=== PATIENT | male | born 1980 | race Caucasian/White ===

== ENCOUNTER 2023-01-16 16:13 | Emergency (ER) | payer BC ==
--- OUTSIDE RECORDS SUMMARY | 2023-01-16 16:20 | XMS REPORT | Continuity of Care Document ---
:1980 Author Organization [facility] t Address [address] [facility] [place] [address] Care Team Providers Name Role Phone Jhonatan Kidd MD Primary Care Physician JUAN A THORPE Attending Clinician Unavailable Juan A Thorpe MD Attending Clinician Geovanna Monique MD Attending Clinician GEOVANNA MONIQUE Attending Clinician Unavailable Doctor Unassigned, [place] Attending Clinician Unavailable VALDO ROME Attending Clinician Unavailable DELROY UMANZOR Attending Clinician Unavailable Antonietta Padilla Attending Clinician Delroy Umanzor DO Attending Clinician Josh Lawler MD Attending Clinician PORTIA KRUEGER Attending Clinician Unavailable [facility] Attending Clinician Unavailable Unknown, Attending Attending Clinician Unavailable UNKNOWN, ATTENDING Attending Clinician Unavailable Valdo Callejas Attending Clinician LISY HANNON Attending Clinician Unavailable Lisy Cordova Attending Clinician JHONATAN KIDD Attending Clinician Unavailable Jhonatan Kidd MD Attending Clinician LILLIAM HIGGINBOTHAM Attending Clinician Unavailable Lilliam [place] Attending Clinician RACHEL DUNHAM Attending Clinician Unavailable RACHEL DUNHAM Attending Clinician Unavailable Hawa DAIRY FEED SALES CONSULTANT, Portia Aaron Attending Clinician GENNY WHITTAKER Attending Clinician Unavailable Provider, [facility] Attending Clinician Unavailable Theron DAIRY FEED SALES CONSULTANT, Genny Attending Clinician Evangelist DAIRY FEED SALES CONSULTANT, Celena Attending Clinician JOSH LAWLER Admitting Clinician Unavailable Josh Lawler MD Admitting Clinician Payers Payer Name Policy Type Policy Number Effective Date Expiration Date S ource [employer] - [id number] 2020 OUT OF STATE 00:00:00 SRC SHAYLEE AETNA [id number] 2015 [facility] 00:00:00 Problems Condition Condition Condition Status Onset Resolution Last Treating Co mments Source Name Details Category Date Date Treatment Clinician Date Perirectal Perirectal Disease Active U nivers abscess abscess 5-26 ity of 00:00: [place] [facility] Perineum Perineum Disease Active Unive rs pain, male pain, male 5-24 it y of 00:00: [place] [facility] Rib pain Rib pain Disease Active Unive rs on left on left 1-31 ity of side side 00:00: [facility] Acute Acute Disease Active Univers cough cough 1- ity of 00:00: [place] [facility] [place] Disease Active Univers foot foot 2- ity of 00:00: [place] [facility] Allergies, Adverse Reactions, Alerts Allergy Allergy Status Severity Reaction(s) Onset Inactive Treating Comm ents Source Name Type Date Date Clinician CLINDAMY DRUG Active Other-Cmnt Univ ers MIKE INGREDI 8- ity of 00:00: [place] [facility] Branch Clindamy Propensi Active Other - See Abdomina l Univers mike ty to comments 8 pain, ity of adverse 00:00: dizziness [place] reaction 00 Medical s to Branch drug Sulfa Propensi Active Unknown - Unive rs (Sulfona ty to See comments 2-27 it y of mide adverse 00:00: [place] Antibiot reaction 00 Medica l ics) s Branch SULFA Drug Active High Unknown-Cmnt 2016- Univ ers (SULFONA Class 2-27 ity of MIDE 00:00: [place] ANTIBIOT 00 Medical ICS) Branch Sulfa Propensi Active Unknown - 2017- Elevated Uni vers (Sulfona ty to See comments 2-27 liver it y of mide adverse 00:00: enzymes [place] Antibiot reaction 00 with Medica l ics) s to Bactrim Branch drug Social History Social Habit Start Date Stop Date Quantity Comments Source Gender identity [facility]it y of [facility] intake 2022-10-02 2022-10-02 Current [facility] 00:00:00 00:00:00 non-drinker of [facility] alcohol [place] (finding) Exposure to 2022-09-09 2022-09-19 Not sure [facility] SARS-CoV-2 (event) 00:00:00 15:19:00 [facility] Education 2022-09-19 2022-09-19 21 [facility] 00:00:00 00:00:00 [facility] History of Social 2022-01-31 2022-01-31 Univers ity of function 00:00:00 00:00:00 [facility] Tobacco use and 2021-11-12 2021-11-12 Smokeless Universit y of exposure 00:00:00 00:00:00 tobacco non-user [place] [facility] Sex Ass[birth year] Universit y of 00:00:00 00:00:00 [facility] Smoking Status Start Date Stop Date Source Never smoked tobacco [place] [facility] Medications Ordered Filled Start Stop Current Ordering Indication Dosage Frequency Signature Comments Components Source Medication Medication Date Date Medication? Clinician (SIG) Name Name ketorolac 2022- No 20mg 20 mg, Unive rs (TORADOL) 10-10 Oral, ONCE ity of tablet 20 23:00: 22:25 NOW, 1 [place] mg 00 :00 dose, On Medical Fri Branch 10/10/22 at 1800, EDDIE linezolid 2022- No 600mg 600 mg, Uni vers (ZYVOX) 10-10 Oral, ONCE ity o f tablet 600 22:45: 22:25 NOW, 1 [place] mg 00 :00 dose, On Medical Fri Branch 10/10/22 at 1745, EDDIE
Re ason for Anti-Infec tive: Documented Infection< br>Documen halley Infection Site: Skin / Soft Tissue
Duration of Therapy: Other (see Comments)< br>Restric halley use approved by: EMERGENCY DEPARTMENT PRESCRIBER linezolid 2023-0 Yes [id number] 600mg Take 1 U nivers (ZYVOX) 600 6-16 tablet by ity of mg tablet 00:00: mouth [place] 00 every 12 Medical (twelve) Branch hours. ketorolac 2023-0 Yes [id number] 10mg Take 1 Un amanda 10 mg 6-16 tablet by ity of tablet 00:00: mouth [place] 00 every 6 Medical (six) Branch hours as needed for Pain (scale 4-6) or Pain (scale 7-10). benztropine 2023-0 Yes 1mg Take 1 Univ ers 1 mg tablet 6-08 tablet by ity of 08:52: mouth in [place] [address] the Medical morning. Branch benztropine 2023-0 Yes 1mg Take 1 Univ ers 1 mg tablet 6-08 tablet by ity of 08:52: mouth in [place] [address] the Medical morning. Branch benztropine 2023-0 Yes 1mg Take 1 Univ ers 1 mg tablet 6-08 tablet by ity of 08:52: mouth in [place] [address] the Medical morning. Branch benztropine 2023-0 Yes 1mg Take 1 Univ ers 1 mg tablet 6-08 tablet by ity of 08:52: mouth in [place] [address] the Medical morning. Branch benztropine 2023-0 Yes 1mg Take 1 Univ ers 1 mg tablet 6-08 tablet by ity of 08:52: mouth in [place] [address] the Medical morning. Branch benztropine 2023-0 Yes 1mg Take 1 Univ ers 1 mg tablet 6-08 tablet by ity of 08:52: mouth in [place] [address] the Medical morning. Branch lactobacill 2023-0 2023- No [id number] .5mg Take 1 Univers us 5-29 06-09 tablet by ity of acidophilus 00:00: 04:59 mouth in [place] 00 :00 the Medical morning Branch for 10 days. lactobacill 2023-0 2023- No [id number] .5mg Take 1 [facility] 09-22- tablet by ity of acidophilus 00:00: 04:59 mouth in [place] 00 :00 the Medical morning Branch for 10 days. lactobacill 2022-0 2022- No [id number] .5mg Take 1 [facility] 09-22- tablet by ity of acidophilus 00:00: 04:59 mouth [place] 00 :00 the Medical morning Branch for 10 days. lactobacill 2022-0 2022- No [id number] .5mg Take 1 [facility] 09-22- tablet by ity of acidophilus 00:00: 04:59 mouth in [place] 00 :00 the Medical morning Branch for 10 days. lactobacill 2022-0 2022- No [id number] .5mg Take 1 [facility] 09-22- tablet by ity of acidophilus 00:00: 04:59 mouth in [facility] 00 :00 the Medical morning Branch for 10 days. lactobacill 2022-0 2022- No [id number] .5mg Take 1 [facility] 09-22- tablet by ity of acidophilus 00:00: 04:59 mouth in [facility] 00 :00 the [facility] morning Branch for 10 days. benztropine 2023-0 Yes 1mg Take 1 Univ ers 1 mg tablet 5-28 tablet by ity of 13:34: mouth in [place] [address] the Medical morning. Branch benztropine 2023-0 Yes 1mg Take 1 Univ ers 1 mg tablet 5-28 tablet by ity of 13:34: mouth in [place] [address] the Medical morning. Branch benztropine 2023-0 Yes 1mg Take 1 Univ ers 1 mg tablet 5-28 tablet by ity of 13:34: mouth in [place] [address] the Medical morning. Branch traMADoL 50 3-0 2023- No [id number] 50mg Take 1 Uni vers mg tablet -22 10-05 tablet by ity of 00:00: 04:59 mouth [place] 00 :00 every 6 Medical (six) Branch hours as needed for Pain (scale 7-10) for up to 7 days. Indication s: acute pain traMADoL 50 3-0 2023- No [id number] 50mg Take 1 Uni vers mg tablet -22 10-05 tablet by ity of 00:00: 04:59 mouth [place] 00 :00 every 6 Medical (six) Branch hours as needed for Pain (scale 7-10) for up to 7 days. Indication s: acute pain ciprofloxac 2022-2022- No [id number] 500mg Take 1 Univers in HCl 500 09-21 tablet by ity of mg tablet 00:00: 04:59 mouth [place] 00 :00 every 12 Medical (twelve) Branch hours for 5 days. metroNIDAZO 2022- No [id number] 500mg Take 1 Univers LE 500 mg 09-21 tablet by ity of tablet 00:00: 04:59 mouth [place] 00 :00 every 12 Medical (twelve) Branch hours for 5 days. ciprofloxac No [id number] 500mg Take 1 Univers in HCl 500 09-21 tablet by ity of mg tablet 00:00: 04:59 mouth [place] 00 :00 every 12 Medical (twelve) Branch hours for 5 days. metroNIDAZO 2022- No [id number] 500mg Take 1 Univers LE 500 mg 09-21 tablet by ity of tablet 00:00: 04:59 mouth [place] 00 :00 every 12 Medical (twelve) Branch hours for 5 days. lactated 2022- No 1000mL at [address] [facility] ers ringers IV 09-20-28 mL/hr, ity of infusion 15:00: 13:54 1,000 mL, [place] 1,000 mL 00 :43 IV Medical Infusion, Branch CONTINUOUS , Starting on 09/20/22 at 1000, Until 09/21/22 at 0854, Routine, PACU lactated 2022- No 1000mL at [address] [facility] ers ringers IV 09-20 05-28 mL/hr, ity of infusion 15:00: 13:54 1,000 mL, [place] 1,000 mL 00 :43 IV Medical Infusion, Branch CONTINUOUS , Starting on 09/20/22 at 1000, Until 09/21/22 at 0854, Routine, PACU HYDROcodone 2022- No 1{tbl} 1 tablet, Univers -acetaminop 09-20- Oral, ity of hen (NORCO 15:00: 15:13 ONCE, 1 [place] 5) 5-325 mg 00 :00 dose, On Medi balaji tablet 1 [facility] tablet 09/20/22 at 1000, Routine, PACU HYDROcodone 2022-0 2022- No 1{tbl} 1 tablet, Univers -acetaminop 09-20 Oral, ity of hen (NORCO 15:00: 15:13 ONCE, 1 [place] 5) 5-325 mg 00 :00 dose, On [facility] balaji tablet 1 [facility] tablet 09/20/22 at 1000, Routine, PACU sodium 2022-0 2022- No PRN, Univers chloride 09-20 Starting ity of 0.9 % 14:07: 14:49 on [facility] irrigation 00 :31 09/20/22 at Med ical solution 0907, Branch Until [facility] 09/20/22 at 0949, Intra-op lactobacill 2022-0 Yes .5mg 0.5 mg, Uni vers 09-20 Oral, ity of acidophilus 14:00: DAILY, [place] tablet 0.5 00 First dose Med ical mg on [facility] 09/20/22 at 0900, Until Discontinu ed, Routine benztropine 0 Yes 1mg 1 mg, Unive rs (COGENTIN) 09-20 Oral, ity of tablet 1 mg 14:00: DAILY, [place] 00 First dose Medical on [facility] 09/20/22 at 0900, Until Discontinu ed, Routine enoxaparin 0 Yes 40mg 40 mg, Unive rs (LOVENOX) 09-20 Subcutaneo ity of injection 14:00: [place], [place]ILY, [place] 40 mg 00 First dose Medical on [facility] 09/20/22 at 0900, Until Discontinu ed, Routine lactobacill 2022-0 2022- No .5mg 0.5 mg, Un amanda 09-20 Oral, ity of acidophilus 14:00: 20:39 DAILY, [place] tablet 0.5 00 :49 First dose Med ical mg on [facility] 09/20/22 at 0900, Until Discontinu ed, Routine benztropine 2022-0 2022- No 1mg 1 mg, Univ ers (COGENTIN) 09-20 Oral, ity of tablet 1 mg 14:00: 20:39 DAILY, [place] 00 :49 First dose Medical on [facility] Branch 09/20/22 at 0900, Until Discontinu ed, Routine enoxaparin No 40mg 40 mg, Univ ers (LOVENOX) 09-20 Subcutaneo ity of injection 14:00: 20:39 us, DAILY, [place] 40 mg 00 :49 First dose Medical on [facility] Branch 09/20/22 at 0900, Until Discontinu ed, Routine bupivacaine No PRN, Unive rs (preserv 09-20 Starting ity of free) 13:51: 14:49 on [facility] (SENSORCAIN 00 :31 09/20/22 at [place] dicpr E MPF) 0.25 0851, [facility] (2.5 Until Sat mg/mL) 09/20/22 at injection 0949, Routine, Intra-op ciprofloxac No 400mg 400 mg, IV Univers in in 5 % 09-20 Piggyback, ity of dextrose 13:00: 12:59 Q12H ABX, [place] (CIPRO) 00 :00 18 doses, Medical piggyback First dose Bran ch 400 mg (after last modificati on) on [facility] 09/20/22 at 0800, Last dose on 09/28/22 at 2000, Administer over 60 Minutes, 200 mL
Reas on for Anti-Infec tive: Documented Infection< br>Documen halley Infection Site: Skin / Soft Tissue
Duration of Therapy: Other (see Comments) ciprofloxac No 400mg 400 mg, IV Univers in in 5 % 09-20 Piggyback, ity of dextrose 13:00: 20:39 Q12H ABX, [place] (CIPRO) 00 :49 18 doses, Medical piggyback First dose Bran ch 400 mg (after last modificati on) on [facility] 09/20/22 at 0800, Last dose on 09/28/22 at 2000, Administer over 60 Minutes, 200 mL
Reas on for Anti-Infec tive: Documented Infection< br>Documen halley Infection Site: Skin / Soft Tissue
Duration of Therapy: Other (see Comments) metroNIDAZO 2022- No 500mg 500 mg, IV Univers LE in NaCl 09-20 0608 Infusion, ity of (iso-os) 09:00: 00:59 Q8H ABX, [place] (FLAGYL 00 :00 35 doses, Medical I.V.) RTU First dose Bran ch IV infusion (after 500 mg last modificati on) on Thu09/20/22 at 0400, Last dose on Thu10/01/22 at 1200, Administer over 60 Minutes, 100 mL
Reas on for Anti-Infec tive: Documented Infection< br>Documen halley Infection Site: Skin / Soft Tissue
Duration of Therapy: Other (see Comments) metroNIDAZO 2022- No 500mg 500 mg, IV Univers LE in NaCl 09-20 Infusion, ity of (iso-os) 09:00: 20:39 Q8H ABX, [place] (FLAGYL 00 :49 35 doses, Medical I.V.) RTU First dose Bran ch IV infusion (after 500 mg last modificati on) on Thu09/20/22 at 0400, Last dose on Thu10/01/22 at 1200, Administer over 60 Minutes, 100 mL
Reas on for Anti-Infec tive: Documented Infection< br>Documen halley Infection Site: Skin / Soft Tissue
Duration of Therapy: Other (see Comments) traZODone Yes 50mg 50 mg, Univer s (DESYREL) 09-20 Oral, QHS, ity of tablet 50 04:00: First dose [place] mg 00 on Thu [facility] 09/19/22 at Branch 2300, Until Discontinu ed, Routine traZODone 2022- No 50mg 50 mg, Unive rs (DESYREL) 09-20 Oral, QHS, ity of tablet 50 04:00: 20:39 First dose [place] mg 00 :49 on Thu [facility] 09/19/22 at Branch 2300, Until Discontinu ed, Routine lactated 2022- No 1000mL at 75 Unive rs ringers IV 09-20 mL/hr, ity of infusion 01:30: 14:24 1,000 mL, [place] 1,000 mL 00 :25 IV Medical Infusion, Branch CONTINUOUS , Starting on Thu09/19/22 at 2030, Until 09/20/22 at 0924, Routine lactated 2022- No 1000mL at 75 Unive rs ringers IV 09-20 05-27 mL/hr, ity of infusion 01:30: 14:24 1,000 mL, [place] 1,000 mL 00 :25 IV Medical Infusion, Branch CONTINUOUS , Starting on Thu09/19/22 at 2030, Until 09/20/22 at 0924, Routine ondansetron Yes 4mg 4 mg, Slow Univers (ZOFRAN 5 IV Push, ity of (PF)) 00:22: Q6HPRN, [place] injection 4 50 Starting Medi balaji mg on Thu Branch 09/19/22 at 192, Until Discontinu ed, Routine, Nausea and Vomiting (N/V) ondansetron 0 2022- No 4mg 4 mg, Slow Univers (ZOFRAN 09-20 IV Push, ity of (PF)) 00:22: 20:39 Q6HPRN, [place] injection 4 50 :49 Starting Medi balaji mg on Fri Branch 09/19/22 at 1922, Until 09/21/22 at 1539, Routine, Nausea and Vomiting (N/V) HYDROcodone 2022-2022- No 1{tbl} 1 tablet, Univers -acetaminop 09-20 Oral, ity of hen (NORCO 00:22: 00:21 Q6HPRN, [place] 5) 5-325 mg 46 :46 Starting Medi balaji tablet 1 on Fri Branch tablet 09/19/22 at 1922, Until 09/21/22 at 1921, Routine, Pain (scale 4-6) HYDROcodone 0 2022- No 1{tbl} 1 tablet, Univers -acetaminop 09-20- Oral, ity of hen (NORCO 00:22: 20:39 Q6HPRN, [place] 5) 5-325 mg 46 :49 Starting Medi balaji tablet 1 on Fri Branch tablet 09/19/22 at 1922, Until 09/21/22 at 1539, Routine, Pain (scale 4-6) acetaminoph Yes 650mg 650 mg, Un amanda en 09-20 Oral, ity of (TYLENOL) 00:22: Q6HPRN, [place] tablet 650 44 Starting Medic al mg on Thu Branch 09/19/22 at 1922, Until Discontinu ed, Routine, Pain (scale 1-3) acetaminoph 2022- No 650mg 650 mg, U nivers en 09-20 Oral, ity of (TYLENOL) 00:22: 20:39 Q6HPRN, [place] tablet 650 44 :49 Starting Medic al mg on Thu Branch 09/19/22 at 1922, Until 09/21/22 at 1539, Routine, Pain (scale 1-3) metroNIDAZO 2022- No 500mg 500 mg, IV Univers LE in NaCl 09-19 Infusion, ity of (iso-os) 23:59: 01:42 ONCE, 1 [place] (FLAGYL 00 :00 dose, On Medical I.V.) RTU Fri Branch IV infusion 09/19/22 at 500 mg 1900, Administer over 60 Minutes, 100 mL
R jorge l for Anti-Infec tive: Documented Infection< br>Documen halley Infection Site: Skin / Soft Tissue
Duration of Therapy: Other (see Comments) ciprofloxac 2022- No 400mg 400 mg, IV Univers in in 5 % 09-19 Piggyback, ity of dextrose 23:59: 01:15 ONCE, 1 [place] (CIPRO) 00 :00 dose, On Medical piggyback Thu Branch 400 mg 09/19/22 at 1900, Administer over 60 Minutes, 200 mL
R jorge l for Anti-Infec tive: Documented Infection< br>Documen halley Infection Site: Skin / Soft Tissue
Duration of Therapy: Other (see Comments) metroNIDAZO 2022-0 2022- No 500mg 500 mg, IV Univers LE in NaCl 09-19 Infusion, ity of (iso-os) 23:59: 01:42 ONCE, 1 [place] (FLAGYL 00 :00 dose, On Medical I.V.) RTU Fri Branch IV infusion 09/19/22 at 500 mg 1900, Administer over 60 Minutes, 100 mL
R jorge l for Anti-Infec tive: Documented Infection< br>Documen halley Infection Site: Skin / Soft Tissue
Duration of Therapy: Other (see Comments) ciprofloxac 2022- No 400mg 400 mg, IV Univers in in 5 % 09-19 Piggyback, ity of dextrose 23:59: 01:15 ONCE, 1 [place] (CIPRO) 00 :00 dose, On Medical piggyback Fri Branch 400 mg 09/19/22 at 1900, Administer over 60 Minutes, 200 mL
R jorge l for Anti-Infec tive: Documented Infection< br>Documen halley Infection Site: Skin / Soft Tissue
Duration of Therapy: Other (see Comments) iopamidol 2022- No [id number] 80mL 80 mL, Univers (ISOVUE 09-19 Intravenou ity o f 370-500 mL) 21:25: 21:45 s, ONCE, 1 [place] injection 00 :00 dose, On Medica l 80 mL Fri Branch 09/19/22 at 1645, Routine iopamidol 2022- No [id number] 80mL 80 mL, Univers (ISOVUE 09-19 Intravenou ity o f 370-500 mL) 21:25: 21:45 s, ONCE, 1 [place] injection 00 :00 dose, On Medica l 80 mL Fri Branch 09/19/22 at 1645, Routine benztropine 2022-0 Yes 1mg Take 1 Univ ers 1 mg tablet 5-23 tablet by ity of 13:59: mouth in [place] [address] the Medical morning. Branch benztropine 2022-0 Yes 1mg Take 1 Univ ers 1 mg tablet 5-23 tablet by ity of 13:59: mouth in [place] [address] the Medical morning. Branch benztropine 2022-0 Yes 1mg Take 1 Univ ers 1 mg tablet 5-23 tablet by ity of 13:59: mouth in [place] [address] the Medical morning. Branch mineral 2022-2022- No Apply to Unive rs oil-hydroph 09-16 area(s) 2 it y of [place] petrolat 13:59: 00:00 (two) [place] (AQUAPHOR) 48 :00 times Medical ointment daily as Branch needed. mineral 2022- No [facility] 5-23 05-23 area(s) 2 it y of [place] petrolat 13:59: 00:00 (two) [place] (AQUAPHOR) 48 :00 times Medical ointment daily as Branch needed. mineral 0 Yes Apply [facility] oil-hydroph 3-15 area(s) 2 ity of [place] petrolat 15:45: (two) [place] (AQUAPHOR) 49 times Medical ointment daily as Branch needed. mineral Yes [facility] oil-hydroph 3-15 area(s) 2 ity of [place] petrolat 15:45: (two) [place] (AQUAPHOR) 49 times Medical ointment daily as Branch needed. meloxicam 0 Yes [id number] 7.5mg Take 1 Univers 7.5 mg 3-15 tablet by ity of tablet 00:00: mouth once [place] 00 daily as Medical needed Branch (pain). meloxicam 2022-0 Yes [id number] 7.5mg Take 1 Univers 7.5 mg 3-15 tablet by ity of tablet 00:00: mouth once [place] 00 daily as Medical needed Branch (pain). meloxicam 2022-0 2022- No [id number] 7.5mg Take 1 Univers 7.5 mg 3-15 05-23 tablet by ity of tablet 00:00: 00:00 mouth once [place] 00 :00 daily as Medical needed Branch (pain). meloxicam 2022-0 2022- No [id number] 7.5mg Take 1 Univers 7.5 mg 3-15 05-23 tablet by ity of tablet 00:00: 00:00 mouth once [place] 00 :00 daily as Medical needed Branch (pain). promethazin 2022-0 Yes [id number] 5mL Take 5 mL Univers e-dextromet 1-31 by mouth 4 it y of horphan 00:00: (four) [place] 6.25-15 00 times Medical mg/5 mL daily as Branch syrup needed for Cough. promethazin 2022-0 Yes [id number] 5mL Take 5 mL Univers e-dextromet 1-31 by mouth 4 it y of horphan 00:00: (four) [place] 6.25-15 00 times Medical mg/5 mL daily as Branch syrup needed for Cough. promethazin 2022-0 Yes [id number] 5mL Take 5 mL Univers e-dextromet 1-31 by mouth 4 it y of horphan 00:00: (four) [place] 6.25-15 00 times Medical mg/5 mL daily as Branch syrup needed for Cough. promethazin 2022-0 Yes [id number] 5mL Take 5 mL Univers e-dextromet 1-31 by mouth 4 it y of horphan 00:00: (four) [place] 6.25-15 00 times Medical mg/5 mL daily as Branch syrup needed for Cough. promethazin 2022-0 Yes [id number] 5mL Take 5 mL Univers e-dextromet 1-31 by mouth 4 it y of horphan 00:00: (four) [place] 6.25-15 00 times Medical mg/5 mL daily as Branch syrup needed for Cough. promethazin 2022-0 Yes [id number] 5mL Take 5 mL Univers e-dextromet 1-31 by mouth 4 it y of horphan 00:00: (four) [place] 6.25-15 00 times Medical mg/5 mL daily as Branch syrup needed for Cough. promethazin 2022-0 Yes [id number] 5mL Take 5 mL Univers e-dextromet 1-31 by mouth 4 it y of horphan 00:00: (four) [place] 6.25-15 00 times Medical mg/5 mL daily as Branch syrup needed for Cough. promethazin 2022-0 3- No [id number] 5mL Take 5 mL Univers e-dextromet 1-31 05-23 by mouth 4 i ty of horphan 00:00: 00:00 (four) [place] 6.25-15 00 :00 times Medical mg/5 mL daily as Branch syrup needed for Cough. promethazin 2022-0 2022- No [id number] 5mL Take 5 mL Univers e-dextromet 1-31 05-23 by mouth 4 i ty of horphan 00:00: 00:00 (four) [place] 6.25-15 00 :00 times Medical mg/5 mL daily as Branch syrup needed for Cough. ibuprofen 2022-0 3- No [id number] 600mg Take 1 Univers 600 mg 1- 02-15 tablet by ity of tablet 00:00: 05:59 mouth [place] 00 :00 every 6 Medical (six) Branch hours as needed for Temp > 38.5 C for up to 14 days. ibuprofen 2022-0 3- No [id number] 600mg Take 1 Univers 600 mg 1- 02-15 tablet by ity of tablet 00:00: 05:59 mouth [place] 00 :00 every 6 Medical (six) Branch hours as needed for Temp > 38.5 C for up to 14 days. ibuprofen 2022-0 3- No [id number] 600mg Take 1 Univers 600 mg 1- 02-15 tablet by ity of tablet 00:00: 05:59 mouth [place] 00 :00 every 6 Medical (six) Branch hours as needed for Temp > 38.5 C for up to 14 days. ibuprofen 2022-0 2022- No [id number] 600mg Take 1 Univers 600 mg 1- 02-15 tablet by ity of tablet 00:00: 05:59 mouth [place] 00 :00 every 6 Medical (six) Branch hours as needed for Temp > 38.5 C for up to 14 days. ibuprofen 2022-0 3- No [id number] 600mg Take 1 Univers 600 mg - 02-15 tablet by ity of tablet 00:00: 05:59 mouth [place] 00 :00 every 6 Medical (six) Branch hours as needed for Temp > 38.5 C for up to 14 days. ibuprofen 2022-0 3- No [id number] 600mg Take 1 Univers 600 mg 1- 02-15 tablet by ity of tablet 00:00: 05:59 mouth [place] 00 :00 every 6 Medical (six) Branch hours as needed for Temp > 38.5 C for up to 14 days. benzonatate 3-0 3- No [id number] 200mg Take 1 Univers 200 mg 05-27-08 capsule by ity of capsule 00:00: 05:59 mouth 3 [place] 00 :00 (three) Medical times Branch daily as needed for Cough for up to 7 days. benzonatate 2023-0 3- No [id number] 200mg Take 1 Univers 200 mg 05-27-08 capsule by ity of capsule 00:00: 05:59 mouth 3 [place] 00 :00 (three) Medical times Branch daily as needed for Cough for up to 7 days. benzonatate 2022-0 2022- No [id number] 200mg Take 1 Univers 200 mg 05-27 capsule by ity of capsule 00:00: 00:00 mouth 3 [place] 00 :00 (three) Medical times Branch daily as needed for Cough for up to 7 days. benzonatate 2022-0 2022- No [id number] 200mg Take 1 [facility] 200 mg 05-27 capsule by ity of capsule 00:00: 00:00 mouth 3 [place] 00 :00 (three) Medical times Branch daily as needed for Cough for up to 7 days. perphenazin 2022-0 Yes 8mg Take 1 [facility] ers e 8 mg 1-18 tablet by ity of tablet 00:00: mouth at [place] 00 bedtime. Medical Branch perphenazin 2022-0 Yes 8mg Take 1 [facility] ers e 8 mg 1-18 tablet by ity of tablet 00:00: mouth at [place] [address] bedtime. Medical Branch perphenazin 2022-0 Yes 8mg Take 1 [facility] ers e 8 mg 1-18 tablet by ity of tablet 00:00: mouth at [place] [address] bedtime. Medical Branch mupirocin 2 2022-0 Yes [id number] Apply to [facility] % ointment 1-18 [id number] area(s) 3 it y of 00:00: (three) [place] 00 times Medical daily. Branch mupirocin 2 2022-0 Yes [id number] Apply to [facility] % ointment 1-18 [id number] area(s) 3 it y of 00:00: (three) [place] 00 times Medical daily. Branch mupirocin 2 2022-0 Yes [id number] Apply to [facility] % ointment 1-18 [id number] area(s) 3 it y of 00:00: (three) [place] 00 times Medical daily. Branch mupirocin 2 2022-0 Yes [id number] Apply to [facility] % ointment 1-18 [id number] area(s) 3 it y of 00:00: (three) [place] 00 times Medical daily. Branch mupirocin 2 2022-0 Yes [id number] Apply to [facility] % ointment 1-18 [id number] area(s) 3 it y of 00:00: (three) 00 times Medical daily. Branch perphenazin 2023-0 Yes 8mg Take 8 mg [facility] nivers e 8 mg 1-18 by mouth ity of tablet 00:00: at [place] 00 bedtime. Medical Branch mupirocin 2 3-0 Yes [id number] Apply to [facility] % ointment 1-18 [id number] area(s) 3 it y of 00:00: (three) 00 times Medical daily. Branch perphenazin 2023-0 Yes 8mg Take 8 mg [facility] nivers e 8 mg 1-18 by mouth ity of tablet 00:00: at [place] 00 bedtime. Medical Branch mupirocin 2 3-0 Yes [id number] Apply to [facility] % ointment 1-18 [id number] area(s) 3 it y of 00:00: (three) [place] 00 times Medical daily. Branch perphenazin 2023-0 Yes 8mg Take 8 mg [facility] nivers e 8 mg 1-18 by mouth ity of tablet 00:00: at [place] bedtime. Medical Branch mupirocin 2 3-0 Yes [id number] Apply to [facility] % ointment 1-18 [id number] area(s) 3 it y of 00:00: (three) [place] 00 times Medical daily. Branch perphenazin 2023-0 Yes 8mg Take 8 mg U nivers e 8 mg 1-18 by mouth ity of tablet 00:00: at [place] bedtime. Medical Branch mupirocin 2 3-0 Yes [id number] Apply to [facility] % ointment 1-18 [id number] area(s) 3 it y of 00:00: (three) 00 times Medical daily. Branch perphenazin 2023-0 Yes 8mg Take 8 mg [facility] nivers e 8 mg 1-18 by mouth ity of tablet 00:00: at [place] bedtime. Medical Branch mupirocin 2 3-0 Yes [id number] Apply to [facility] % ointment 1-18 [id number] area(s) 3 it y of 00:00: (three) [place] 00 times Medical daily. Branch perphenazin 2023-0 Yes 8mg Take 8 mg [facility] nivers e 8 mg 1-18 by mouth ity of tablet 00:00: at [place] 00 bedtime. Medical Branch mupirocin 2 3-0 Yes [id number] Apply to [facility] % ointment 1-18 [id number] area(s) 3 it y of 00:00: (three) 00 times Medical daily. Branch perphenazin 2023-0 Yes 8mg Take 8 mg [facility] nivers e 8 mg 1-18 by mouth ity of tablet 00:00: at [place] 00 bedtime. Medical Branch mupirocin 2 3-0 Yes [id number] Apply to [facility] % ointment 1-18 [id number] area(s) 3 it y of 00:00: (three) 00 times Medical daily. Branch perphenazin 2023-0 Yes 8mg Take 8 mg [facility] nivers e 8 mg 1-18 by mouth ity of tablet 00:00: at [place] bedtime. Medical Branch mupirocin 2 3-0 Yes [id number] Apply to [facility] % ointment 1-18 [id number] area(s) 3 it y of 00:00: (three) [place] 00 times Medical daily. Branch perphenazin 2023-0 Yes 8mg Take 8 mg U nivers e 8 mg 1-18 by mouth ity of tablet 00:00: at [place] bedtime. Medical Branch perphenazin 2023-0 Yes 8mg Take 8 mg [facility] nivers e 8 mg 1-18 by mouth ity of tablet 00:00: at [place] [address] bedtime. Medical Branch perphenazin 3-0 Yes 8mg Take 8 mg [facility] nivers e 8 mg 1-18 by mouth ity of tablet 00:00: at [place] bedtime. Medical Branch perphenazin 2023-0 Yes 8mg Take 8 mg [facility] nivers e 8 mg 1-18 by mouth ity of tablet 00:00: at [place] [address] bedtime. Medical Branch perphenazin 2023-0 Yes 8mg Take 1 [facility] ers e 8 mg 1-18 tablet by ity of tablet 00:00: mouth at [place] bedtime. Medical Branch perphenazin 2023-0 Yes 8mg Take 1 [facility] ers e 8 mg 1-18 tablet by ity of tablet 00:00: mouth at [place] [address] bedtime. Medical Branch perphenazin 2023-0 Yes 8mg Take 1 [facility] ers e 8 mg 1-18 tablet by ity of tablet 00:00: mouth at [place] [address] bedtime. Medical Branch perphenazin 2023-0 Yes 8mg Take 1 [facility] ers e 8 mg 1-18 tablet by ity of tablet 00:00: mouth at [place] 00 bedtime. Medical Branch perphenazin 2022-0 Yes 8mg Take 1 [facility] ers e 8 mg 1-18 tablet by ity of tablet 00:00: mouth at [place] 00 bedtime. Medical Branch perphenazin 2022-0 Yes 8mg Take 1 [facility] ers e 8 mg 1-18 tablet by ity of tablet 00:00: mouth at [place] 00 bedtime. Medical Branch mupirocin 2 2022-2022- No [id number] Apply to [facility] % ointment 05-14 [id number] area(s) 3 i ty of 00:00: 00:00 (three) [place] 00 :00 times Medical daily. Branch mupirocin 2 2022-2022- No [id number] Apply to [facility] % ointment 05-14 [id number] area(s) 3 i ty of 00:00: 00:00 (three) [place] 00 :00 times Medical daily. Branch cephALEXin 2022-0 2022- No [id number] 500mg Take 1 [facility] (KEFLEX) 05-14 [id number] capsule by it y of 500 mg 00:00: 05:59 mouth 4 [place] capsule 00 :00 (four) Medical times [place] daily for 7 days. cephALEXin 2022-0 2022- No [id number] 500mg Take 1 [facility] (KEFLEX) 05-14 [id number] capsule by it y of 500 mg 00:00: 05:59 mouth 4 [place] capsule 00 :00 (four) Medical times Branch daily for 7 days. cephALEXin 2022-0 2022- No [id number] 500mg Take 1 [facility] (KEFLEX) 05-14 [id number] capsule by it y of 500 mg 00:00: 05:59 mouth 4 [place] capsule 00 :00 (four) Medical times Branch daily for 7 days. cephALEXin 2022-0 2022- No [id number] 500mg Take 1 [facility] (KEFLEX) 05-14 [id number] capsule by it y of 500 mg 00:00: 05:59 mouth 4 [place] capsule 00 :00 (four) Medical times [place] daily for 7 days. benztropine 2021-04 Yes 1mg Take 1 mg U nivers 1 mg tablet 0-07 by mouth ity of 16:39: daily. [address] benztropine 2021-04 Yes 1mg Take 1 mg U nivers 1 mg tablet 0-07 by mouth ity of 16:39: daily. [address] benztropine 2021-04 Yes 1mg Take 1 mg U nivers 1 mg tablet 0-07 by mouth ity of 16:39: daily. [address] benztropine 2021-04 Yes 1mg Take 1 mg U nivers 1 mg tablet 0-07 by mouth ity of 16:39: daily. [address] benztropine 2021-04 Yes 1mg Take 1 mg U nivers 1 mg tablet 0-07 by mouth ity of 16:39: daily. [address] benztropine 2021-04 Yes 1mg Take 1 mg U nivers 1 mg tablet 0-07 by mouth ity of 16:39: daily. [address] benztropine 2021-04 Yes 1mg Take 1 mg U nivers 1 mg tablet 0-07 by mouth ity of 16:39: daily. [address] benztropine 2021-04 Yes 1mg Take 1 mg U nivers 1 mg tablet 0-07 by mouth ity of 16:39: daily. [address] benztropine 2021-04 Yes 1mg Take 1 mg U nivers 1 mg tablet 0-07 by mouth ity of 16:39: daily. [address] benztropine 2021-04 Yes 1mg Take 1 mg U nivers 1 mg tablet 0-07 by mouth ity of 16:39: daily. [address] benztropine 2021-04 Yes 1mg Take 1 mg U nivers 1 mg tablet 0-07 by mouth ity of 16:39: daily. [address] benztropine 2021-04 Yes 1mg Take 1 mg U nivers 1 mg tablet 0-07 by mouth ity of 16:39: daily. [address] benztropine 2021-04 Yes 1mg Take 1 mg U nivers 1 mg tablet 0-07 by mouth ity of 16:39: daily. [address] benztropine 2021-04 Yes 1mg Take 1 mg U nivers 1 mg tablet 0-07 by mouth ity of 16:39: daily. [address] benztropine 2021-04 Yes 1mg Take 1 mg U nivers 1 mg tablet 0-07 by mouth ity of 16:39: daily. [address] benztropine 2021-04 Yes 1mg Take 1 mg U nivers 1 mg tablet 0-07 by mouth ity of 16:39: daily. [address] benztropine 2021-04 Yes 1mg Take 1 mg U nivers 1 mg tablet 0-07 by mouth ity of 16:39: daily. [address] moxifloxaci 2021-04 Yes [id number] 1[drp] Place 1 [facility] n 0.5 % 0-07 9106 Drop in ity of ophthalmic 00:00: right eye [place] drops 00 in the Medical morning Branch and 1 Drop at noon and 1 Drop in the evening. moxifloxaci 2021-04 Yes [id number] 1[drp] Place 1 [facility] n 0.5 % 0-07 9106 Drop in ity of ophthalmic 00:00: right eye [place] drops 00 in the Medical morning Branch and 1 Drop at noon and 1 Drop in the evening. moxifloxaci 2021-04 Yes [id number] 1[drp] Place 1 [facility] n 0.5 % 0-07 9106 Drop in ity of ophthalmic 00:00: right eye [place] drops 00 in the Medical morning Branch and 1 Drop at noon and 1 Drop in the evening. moxifloxaci 2021-04 Yes [id number] 1[drp] Place 1 [facility] n 0.5 % 0-07 9106 Drop in ity of ophthalmic 00:00: right eye [place] drops 00 in the Medical morning Branch and 1 Drop at noon and 1 Drop in the evening. moxifloxaci 2021-04 Yes [id number] 1[drp] Place 1 [facility] n 0.5 % 0-07 9106 Drop in ity of ophthalmic 00:00: right eye [place] drops 00 in the Medical morning Branch and 1 Drop at noon and 1 Drop in the evening. moxifloxaci 2021-04 Yes [id number] 1[drp] Place 1 [facility] n 0.5 % 0-07 9106 Drop in ity of ophthalmic 00:00: right eye [place] drops 00 in the Medical morning Branch and 1 Drop at noon and 1 Drop in the evening. moxifloxaci 2021-04 Yes [id number] 1[drp] Place 1 [facility] n 0.5 % 0-07 9106 Drop in ity of ophthalmic 00:00: right eye [place] drops 00 in the Medical morning Branch and 1 Drop at noon and 1 Drop in the evening. moxifloxaci 2021-04 Yes [id number] 1[drp] Place 1 [facility] n 0.5 % 0-07 9106 Drop in ity of ophthalmic 00:00: right eye [place] drops 00 in the Medical morning Branch and 1 Drop at noon and 1 Drop in the evening. moxifloxaci 2021-04 Yes [id number] 1[drp] Place 1 [facility] n 0.5 % 0-07 9106 Drop in ity of ophthalmic 00:00: right eye [place] drops 00 in the Medical morning Branch and 1 Drop at noon and 1 Drop in the evening. moxifloxaci 2021-04 Yes [id number] 1[drp] Place 1 [facility] n 0.5 % 0-07 9106 Drop in ity of ophthalmic 00:00: right eye [place] drops 00 in the Medical morning Branch and 1 Drop at noon and 1 Drop in the evening. moxifloxaci 2021-04 Yes [id number] 1[drp] Place 1 [facility] n 0.5 % 0-07 9106 Drop in ity of ophthalmic 00:00: right eye [place] drops 00 in the Medical morning Branch and 1 Drop at noon and 1 Drop in the evening. moxifloxaci 2021-04 Yes [id number] 1[drp] Place 1 [facility] n 0.5 % 0-07 9106 Drop in ity of ophthalmic 00:00: right eye [place] drops 00 in the Medical morning Branch and 1 Drop at noon and 1 Drop in the evening. moxifloxaci 2021-04 Yes [id number] 1[drp] Place 1 [facility] n 0.5 % 0-07 9106 Drop in ity of ophthalmic 00:00: right eye [place] drops 00 in the Medical morning Branch and 1 Drop at noon and 1 Drop in the evening. moxifloxaci 2021-04 Yes [id number] 1[drp] Place 1 [facility] n 0.5 % 0-07 9106 Drop in ity of ophthalmic 00:00: right eye [place] drops 00 in the Medical morning Branch and 1 Drop at noon and 1 Drop in the evening. moxifloxaci 2021-04 Yes [id number] 1[drp] Place 1 [facility] n 0.5 % 0-07 9106 Drop in ity of ophthalmic 00:00: right eye [place] drops 00 in the Medical morning Branch and 1 Drop at noon and 1 Drop in the evening. moxifloxaci 2021-04 Yes [id number] 1[drp] Place 1 [facility] n 0.5 % 0-07 9106 Drop in ity of ophthalmic 00:00: right eye [place] drops 00 in the Medical morning Branch and 1 Drop at noon and 1 Drop in the evening. moxifloxaci 2021-04- No [id number] 1[drp] Place 1 [facility] n 0.5 % 0-07 05-23 9106 Drop in ity of ophthalmic 00:00: 00:00 right eye [place] drops 00 :00 in the Medical morning Branch and 1 Drop at noon and 1 Drop in the evening. moxifloxaci 2021-04- No [id number] 1[drp] Place 1 [facility] n 0.5 % 0-07 05-23 9106 Drop in ity of ophthalmic 00:00: 00:00 right eye [place] drops 00 :00 in the Medical morning Branch and 1 Drop at noon and 1 Drop in the evening. bromphenira Yes [id number] 5mL Take 5 mL [facility] mine-pseudo 7-19 by mouth 4 it y of ephedrine-D 00:00: (four) [place] M (BROMFED 00 times Medical DM) 2-30-10 daily as Bran ch mg/5 mL needed for syrup Congestion /Allergies . methylPREDN Yes [id number] Take by [facility] ISolone 7-19 mouth ity of (MEDROL, 00:00: SEE-INSTRU [place] OSBALDO,) 4 mg 00 CTIONS. Medica l tablets follow Branch package directions naproxen Yes [id number] 500mg Take 1 [facility] nivers 500 mg 7-19 tablet by ity of tablet 00:00: mouth in [place] 00 the Medical morning Branch and 1 tablet in the evening. Take with meals. bromphenira 2021-2021- No [id number] 5mL Take 5 mL [facility] mine-pseudo 11-12 by mouth 4 i ty of ephedrine-D 00:00: 00:00 (four) [place] M (BROMFED 00 :00 times Medical DM) 2-30-10 daily as Bran ch mg/5 mL needed for syrup Congestion /Allergies . methylPREDN 2021-2021- No [id number] Take by [facility] ISolone 11-12 mouth ity of (MEDROL, 00:00: 00:00 SEE-INSTRU [place] OSBALDO,) 4 mg 00 :00 CTIONS. Medica l tablets follow [place] package directions naproxen 2021- No [id number] 500mg Take 1 [facility] 500 mg 11-12 tablet by ity of tablet 00:00: 00:00 mouth in [place] 00 :00 the [facility] morning Branch and 1 tablet in the evening. Take with meals. bromphenira 2021- No [id number] 5mL Take 5 mL [facility] mine-pseudo 11-12 by mouth 4 i ty of ephedrine-D 00:00: 00:00 (four) [place] M (BROMFED 00 :00 times Medical DM) 2-30-10 daily as Bran ch mg/5 mL needed for syrup Congestion /Allergies . methylPREDN 2021- No [id number] Take by [facility] ISolone 11-12 mouth ity of (MEDROL, 00:00: 00:00 SEE-INSTRU [place] OSBALDO,) 4 mg 00 :00 CTIONS. Medica l tablets follow Branch package directions naproxen 2021-2021- No [id number] 500mg Take 1 [facility] 500 mg 11-12 tablet by ity of tablet 00:00: 00:00 mouth in [place] 00 :00 the Medical morning Branch and 1 tablet in the evening. Take with meals. traZODone 2020-04 Yes TAKE 1 [facility] s 50 mg 2-24 TABLET BY ity of tablet 00:00: MOUTH AT [place] 00 BEDTIME Medical NEEDED FOR Branch SLEEP traZODone 2020-04 Yes TAKE 1 [facility] 50 mg 2-24 TABLET BY ity of tablet 00:00: MOUTH AT [place] BEDTIME Medical NEEDED FOR Branch SLEEP traZODone 2020-04 Yes TAKE 1 [facility] 50 mg 2-24 TABLET BY ity of tablet 00:00: MOUTH AT [place] BEDTIME Medical NEEDED FOR Branch SLEEP traZODone 2020-04 Yes TAKE 1 [facility] 50 mg 2-24 TABLET BY ity of tablet 00:00: MOUTH AT [place] BEDTIME Medical NEEDED FOR Branch SLEEP traZODone 2020-04 Yes TAKE 1 [facility] 50 mg 2-24 TABLET BY ity of tablet 00:00: MOUTH AT [place] BEDTIME Medical NEEDED FOR Branch SLEEP traZODone 2020-04 Yes TAKE 1 [facility] s 50 mg 2-24 TABLET BY ity of tablet 00:00: MOUTH AT [place] BEDTIME Medical NEEDED FOR Branch SLEEP traZODone 2020-04 Yes TAKE 1 [facility] 50 mg 2-24 TABLET BY ity of tablet 00:00: MOUTH AT [place] BEDTIME Medical NEEDED FOR Branch SLEEP traZODone 2020-04 Yes TAKE 1 [facility] 50 mg 2-24 TABLET BY ity of tablet 00:00: MOUTH AT [place] BEDTIME Medical NEEDED FOR Branch SLEEP traZODone 2020-04 Yes TAKE 1 [facility] s 50 mg 2-24 TABLET BY ity of tablet 00:00: MOUTH AT [place] BEDTIME Medical NEEDED FOR Branch SLEEP traZODone 2020-04 Yes TAKE 1 [facility] s 50 mg 2-24 TABLET BY ity of tablet 00:00: MOUTH AT [place] BEDTIME Medical NEEDED FOR Branch SLEEP traZODone 2020-04 Yes TAKE 1 [facility] s 50 mg 2-24 TABLET BY ity of tablet 00:00: MOUTH AT [place] BEDTIME Medical NEEDED FOR Branch SLEEP traZODone 2020-04 Yes TAKE 1 [facility] s 50 mg 2-24 TABLET BY ity of tablet 00:00: MOUTH AT [place] BEDTIME Medical NEEDED FOR Branch SLEEP traZODone 2020-04 Yes TAKE 1 [facility] s 50 mg 2-24 TABLET BY ity of tablet 00:00: MOUTH AT [place] BEDTIME Medical NEEDED FOR Branch SLEEP traZODone 2020-04 Yes TAKE 1 [facility] s 50 mg 2-24 TABLET BY ity of tablet 00:00: MOUTH AT [place] BEDTIME Medical NEEDED FOR Branch SLEEP traZODone 2020-04 Yes TAKE 1 [facility] s 50 mg 2-24 TABLET BY ity of tablet 00:00: MOUTH AT [place] BEDTIME Medical NEEDED FOR Branch SLEEP traZODone 2020-04 Yes TAKE 1 [facility] s 50 mg 2-24 TABLET BY ity of tablet 00:00: MOUTH AT [place] BEDTIME Medical NEEDED FOR Branch SLEEP traZODone 2020-04 Yes TAKE 1 [facility] 50 mg 2-24 TABLET BY ity of tablet 00:00: MOUTH AT [place] BEDTIME Medical NEEDED FOR Branch SLEEP traZODone 2020-04 Yes TAKE 1 [facility] s 50 mg 2-24 TABLET BY ity of tablet 00:00: MOUTH AT [place] BEDTIME Medical NEEDED FOR Branch SLEEP traZODone 2020-04 Yes TAKE 1 [facility] s 50 mg 2-24 TABLET BY ity of tablet 00:00: MOUTH AT [place] BEDTIME Medical NEEDED FOR Branch SLEEP traZODone 2020-04 Yes TAKE 1 [facility] 50 mg 2-24 TABLET BY ity of tablet 00:00: MOUTH AT [place] BEDTIME Medical NEEDED FOR Branch SLEEP traZODone 2020-04 Yes TAKE 1 [facility] s 50 mg 2-24 TABLET BY ity of tablet 00:00: MOUTH AT [place] BEDTIME Medical NEEDED FOR Branch SLEEP traZODone 2020-04 Yes TAKE 1 [facility] s 50 mg 2-24 TABLET BY ity of tablet 00:00: MOUTH AT [place] BEDTIME Medical NEEDED FOR Branch SLEEP traZODone 2020-04 Yes TAKE 1 [facility] s 50 mg 2-24 TABLET BY ity of tablet 00:00: MOUTH AT [place] BEDTIME Medical NEEDED FOR Branch SLEEP traZODone 2020-04 Yes TAKE 1 [facility] s 50 mg 2-24 TABLET BY ity of tablet 00:00: MOUTH AT [place] BEDTIME Medical NEEDED FOR Branch SLEEP traZODone 2020-04 Yes TAKE 1 [facility] 50 mg 2-24 TABLET BY ity of tablet 00:00: MOUTH AT [place] BEDTIME Medical NEEDED FOR Branch SLEEP traZODone 2020-04 Yes TAKE 1 [facility] s 50 mg 2-24 TABLET BY ity of tablet 00:00: MOUTH AT [place] [address] BEDTIME Medical NEEDED FOR Branch SLEEP traZODone 2020-04 Yes TAKE 1 [facility] s 50 mg 2-24 TABLET BY ity of tablet 00:00: MOUTH AT [place] BEDTIME Medical NEEDED FOR Branch SLEEP traZODone 2020-04 Yes TAKE 1 [facility] 50 mg 2-24 TABLET BY ity of tablet 00:00: MOUTH AT [place] BEDTIME Medical NEEDED FOR Branch SLEEP traZODone 2020-04 Yes TAKE 1 [facility] 50 mg 2-24 TABLET BY ity of tablet 00:00: MOUTH AT [place] [address] BEDTIME Medical NEEDED FOR Branch SLEEP traZODone 2020-04 Yes TAKE 1 [facility] 50 mg 2-24 TABLET BY ity of tablet 00:00: MOUTH AT [place] [address] BEDTIME Medical NEEDED FOR Branch SLEEP paliperidon 2020-04 Yes 6mg Take 1 Univ ers e 6 mg 24 2-16 tablet by ity o f hour tablet 00:00: mouth [place] every Medical morning. Branch paliperidon 2020-04 Yes 6mg Take 1 Univ ers e 6 mg 24 2-16 tablet by ity o f hour tablet 00:00: mouth [place] every Medical morning. Branch paliperidon 2020-04 Yes 6mg Take 1 Univ ers e 6 mg 24 2-16 tablet by ity o f hour tablet 00:00: mouth [place] every Medical morning. Branch paliperidon 2020-04 Yes 6mg Take 6 mg U nivers e 6 mg 24 2-16 by mouth ity of hour tablet 00:00: every [place] morning. Medical Branch paliperidon 2020-04 Yes 6mg Take 6 mg U nivers e 6 mg 24 2-16 by mouth ity of hour tablet 00:00: every [place] morning. Medical Branch paliperidon 2020-04 Yes 6mg Take 6 mg U nivers e 6 mg 24 2-16 by mouth ity of hour tablet 00:00: every [place] morning. Medical Branch paliperidon 2020-04 Yes 6mg Take 6 mg U nivers e 6 mg 24 2-16 by mouth ity of hour tablet 00:00: every [place] [address] morning. Medical Branch paliperidon 2020-04 Yes 6mg Take 6 mg U nivers e 6 mg 24 2-16 by mouth ity of hour tablet 00:00: every [place] morning. Medical Branch paliperidon 2020-04 Yes 6mg Take 6 mg U nivers e 6 mg 24 2-16 by mouth ity of hour tablet 00:00: every [place] morning. Medical Branch paliperidon 2020-04 Yes 6mg Take 6 mg U nivers e 6 mg 24 2-16 by mouth ity of hour tablet 00:00: every [place] morning. Medical Branch paliperidon 2020-04 Yes 6mg Take 6 mg U nivers e 6 mg 24 2-16 by mouth ity of hour tablet 00:00: every [place] morning. Medical Branch paliperidon 2020-04 Yes 6mg Take 6 mg U nivers e 6 mg 24 2-16 by mouth ity of hour tablet 00:00: every [place] morning. Medical Branch paliperidon 2020-04 Yes 6mg Take 6 mg U nivers e 6 mg 24 2-16 by mouth ity of hour tablet 00:00: every [place] morning. Medical Branch paliperidon 2020-04 Yes 6mg Take 6 mg U nivers e 6 mg 24 2-16 by mouth ity of hour tablet 00:00: every [place] morning. Medical Branch paliperidon 2020-04 Yes 6mg Take 6 mg U nivers e 6 mg 24 2-16 by mouth ity of hour tablet 00:00: every [place] morning. Medical Branch paliperidon 2020-04 Yes 6mg Take 6 mg U nivers e 6 mg 24 2-16 by mouth ity of hour tablet 00:00: every [place] morning. Medical Branch paliperidon 2020-04 Yes 6mg Take 6 mg U nivers e 6 mg 24 2-16 by mouth ity of hour tablet 00:00: every [place] morning. Medical Branch paliperidon 2020-04 Yes 6mg Take 6 mg U nivers e 6 mg 24 2-16 by mouth ity of hour tablet 00:00: every [place] morning. Medical Branch paliperidon 2020-04 Yes 6mg Take 6 mg U nivers e 6 mg 24 2-16 by mouth ity of hour tablet 00:00: every [place] [address] morning. Medical Branch paliperidon 2020-04 Yes 6mg Take 6 mg U nivers e 6 mg 24 2-16 by mouth ity of hour tablet 00:00: every 00 morning. Medical Branch paliperidon 2020-04 Yes 6mg Take 6 mg U nivers e 6 mg 24 2-16 by mouth ity of hour tablet 00:00: every 00 morning. Medical Branch paliperidon 2020-04 Yes 6mg Take 6 mg U nivers e 6 mg 24 2-16 by mouth ity of hour tablet 00:00: every 00 morning. Medical Branch paliperidon 2020-04 Yes 6mg Take 6 mg U nivers e 6 mg 24 2-16 by mouth ity of hour tablet 00:00: every 00 morning. Medical Branch paliperidon 2020-04 Yes 6mg Take 6 mg U nivers e 6 mg 24 2-16 by mouth ity of hour tablet 00:00: every 00 morning. Medical Branch paliperidon 2020-04 Yes 6mg Take 1 Univ ers e 6 mg 24 2-16 tablet by ity o f hour tablet 00:00: mouth [place] 00 every Medical morning. Branch paliperidon 2020-04 Yes 6mg Take 1 Univ ers e 6 mg 24 2-16 tablet by ity o f hour tablet 00:00: mouth [place] 00 every Medical morning. Branch paliperidon 2020-04 Yes 6mg Take 1 Univ ers e 6 mg 24 2-16 tablet by ity o f hour tablet 00:00: mouth [place] 00 every Medical morning. Branch paliperidon 2020-04 Yes 6mg Take 1 Univ ers e 6 mg 24 2-16 tablet by ity o f hour tablet 00:00: mouth [place] 00 every Medical morning. Branch paliperidon 2020-04 Yes 6mg Take 1 Univ ers e 6 mg 24 2-16 tablet by ity o f hour tablet 00:00: mouth [place] 00 every Medical morning. Branch paliperidon 2020-04 Yes 6mg Take 1 Univ ers e 6 mg 24 2-16 tablet by ity o f hour tablet 00:00: mouth [place] 00 every Medical morning. Branch diclofenac Yes [id number] 50mg Take 1 [facility] 50 mg EC 8-31 tablet by ity of tablet 00:00: mouth 2 [place] 00 (two) Medical times Branch daily with meals. diclofenac 2021- No [id number] 50mg Take 1 [facility] 50 mg EC 8-31 10-07 tablet by ity o f tablet 00:00: 00:00 mouth 2 [place] 00 :00 (two) Medical times Branch daily with meals. diclofenac 2021- No [id number] 50mg Take 1 [facility] 50 mg EC 8-01-31 tablet by ity o f tablet 00:00: 00:00 mouth 2 [place] 00 :00 (two) Medical times Branch daily with meals. lidocaine/h Yes [id number] 1{appli Insert 1 [facility] ydrocortiso 10-06 cator} Applicator ity of ne ac 00:00: into [place] (LIDOCAINE 00 rectum 2 Medic al HCL-HYDROCO (two) Branch RTISON AC) times 3 %-2.5 % daily as (7 gram) needed for Gel Pain (scale 4-6). lidocaine/h 2021- No [id number] 1{appli Insert 1 [facility] ydrocortiso -01-31 cator} Applicator ity of ne ac 00:00: 00:00 into [place] (LIDOCAINE 00 :00 rectum 2 Medic al HCL-HYDROCO (two) Branch RTISON AC) times 3 %-2.5 % daily as (7 gram) needed for Gel Pain (scale 4-6). lidocaine/h 2021- No [id number] 1{appli Insert 1 [facility] ydrocortiso 10-06 cator} Applicator ity of ne ac 00:00: 00:00 into [place] (LIDOCAINE 00 :00 rectum 2 Medic al HCL-HYDROCO (two) Branch RTISON AC) times 3 %-2.5 % daily as (7 gram) needed for Gel Pain (scale 4-6). benztropine Yes 1mg Take 1 mg U nivers 1 mg tablet 08 by mouth ity of 14:07: daily. [place] 42 Medical Branch Lidocaine-H Yes [id number] Insert [facility] ydrocortiso 10-02 into ity of [place] 00:00: rectum 3 [place] 2.8-0.55 % 00 (three) Medica l Gel times Branch daily as needed for Pain (scale 4-6). Lidocaine-H 2021- No [id number] Insert [facility] ydrocortiso 10-02 into ity of ne-[place] 00:00: 00:00 rectum 3 [place] 2.8-0.55 % 00 :00 (three) Medica l Gel times Branch daily as needed for Pain (scale 4-6). Lidocaine-H 2021- No [id number] Insert Univers ydrocortiso 10-02 into ity of [place] 00:00: 00:00 rectum 3 [place] 2.8-0.55 % 00 :00 (three) Medica l Gel times Branch daily as needed for Pain (scale 4-6). mupirocin 2 Yes [id number] Apply to Univers % ointment 11-30 area(s) 3 ity of 00:00: (three) [place] 00 times Medical daily. Branch mupirocin 2 2021- No [id number] Apply to Univers % ointment 11-30 area(s) 3 ity of 00:00: 00:00 (three) [place] 00 :00 times Medical daily. Branch mupirocin 2 2021- No [id number] Apply to Univers % ointment 11-30 area(s) 3 ity of 00:00: 00:00 (three) [place] 00 :00 times Medical daily. Branch hydrocortis Yes Apply to Un amanda one 2.5 % 5-04 affected ity of cream 00:00: area(s) 2 [place] 00 (two) Medical times Branch daily. hydrocortis Yes Apply to Un amanda one 2.5 % 5-04 affected ity of cream 00:00: area(s) 2 [place] 00 (two) Medical times Branch daily. hydrocortis 2017- Yes Apply to Un amanda one 2.5 % 5-04 affected ity of cream 00:00: area(s) 2 [place] 00 (two) Medical times Branch daily. hydrocortis 2017-0 Yes Apply to Un amanda one 2.5 % 5-04 affected ity of cream 00:00: area(s) 2 [place] 00 (two) Medical times Branch daily. hydrocortis 2018- Yes Apply to Un amanda one 2.5 % 5-04 affected ity of cream 00:00: area(s) 2 [place] 00 (two) Medical times Branch daily. hydrocortis 2018-0 Yes Apply to Un amanda one 2.5 % 5-04 affected ity of cream 00:00: area(s) 2 [place] 00 (two) Medical times Branch daily. hydrocortis 2018-0 Yes Apply to Un amanda one 2.5 % 5-04 affected ity of cream 00:00: area(s) 2 [place] 00 (two) Medical times Branch daily. hydrocortis 2018-0 Yes Apply to Un amanda one 2.5 % 5-04 affected ity of cream 00:00: area(s) 2 [place] 00 (two) Medical times Branch daily. hydrocortis 2018-0 Yes Apply to Un amanda one 2.5 % 5-04 affected ity of cream 00:00: area(s) 2 [place] 00 (two) Medical times Branch daily. hydrocortis 2018-0 Yes Apply to Un amanda one 2.5 % 5-04 affected ity of cream 00:00: area(s) 2 [place] 00 (two) Medical times Branch daily. hydrocortis 2017-0 Yes Apply to Un amanda one 2.5 % 5-04 affected ity of cream 00:00: area(s) 2 [place] 00 (two) Medical times Branch daily. hydrocortis 2018-0 Yes Apply to Un amanda one 2.5 % 5-04 affected ity of cream 00:00: area(s) 2 [place] 00 (two) Medical times Branch daily. hydrocortis 2018-0 Yes Apply to Un amanda one 2.5 % 5-04 affected ity of cream 00:00: area(s) 2 [place] 00 (two) Medical times Branch daily. hydrocortis 2018-0 Yes Apply to Un amanda one 2.5 % 5-04 affected ity of cream 00:00: area(s) 2 [place] 00 (two) Medical times Branch daily. hydrocortis 2018-0 Yes Apply to Un amanda one 2.5 % 5-04 affected ity of cream 00:00: area(s) 2 [place] 00 (two) Medical times Branch daily. hydrocortis 2018-0 Yes Apply to Un amanda one 2.5 % 5-04 affected ity of cream 00:00: area(s) 2 [place] 00 (two) Medical times Branch daily. hydrocortis 2018-0 Yes Apply to Un amanda one 2.5 % 5-04 affected ity of cream 00:00: area(s) 2 [place] 00 (two) Medical times Branch daily. hydrocortis Yes Apply to Un amanda one 2.5 % 5-04 affected ity of cream 00:00: area(s) 2 [place] 00 (two) Medical times Branch daily. hydrocortis 2022- No Apply to U nivers one 2.5 % 5-04 05-23 affected ity o f cream 00:00: 00:00 area(s) 2 [place] 00 :00 (two) Medical times Branch daily. hydrocortis 2022- No Apply to U nivers one 2.5 % 5-04 05-23 affected ity o f cream 00:00: 00:00 area(s) 2 [place] 00 :00 (two) Medical times Branch daily. Vital Signs Vital Name Observation Time Observation Value Comments Source Systolic blood 2022-10-10 21:01:00 123 mm[Hg] Univer [facility]ity [facility] Diastolic blood 2022-10-10 21:01:00 76 mm[Hg] Unive rsity of [facility] Heart rate 2022-10-10 21:01:00 96 /min [facility] Body temperature 2022-10-10 21:01:00 37.22 Lauren [facility] Respiratory rate 2022-10-10 21:01:00 20 /min [facility] Body height 2022-10-10 21:01:00 180.3 cm [facility] Body weight 2022-10-10 21:01:00 73.483 kg [facility] BMI 2022-10-10 21:01:00 22.59 kg/m2 [facility] Oxygen saturation in 2022-10-10 21:01:00 97 /min [facility] Arterial blood by [facility] Pulse oximetry Branch Systolic blood 2022-10-02 13:53:00 126 mm[Hg] Univer sity of [facility] Diastolic blood 2022-10-02 13:53:00 70 mm[Hg] Unive rsity of [facility] Heart rate 2022-10-02 13:53:00 78 /min [facility] Body temperature 2022-10-02 13:53:00 36.89 Lauren [facility] [place] [facility] Respiratory rate 2022-10-02 13:53:00 20 /min Univ [facility] [place] [facility] Body height 2022-10-02 13:53:00 180.3 cm Universi ty [facility] [place] [facility] Body weight 2022-10-02 13:53:00 77.656 kg [facility] [place] [facility] BMI 2022-10-02 13:53:00 23.88 kg/m2 [facility] [place] [facility] Oxygen saturation in 2022-10-02 13:53:00 99 /min University of Arterial blood by [place] L2 balaji Pulse oximetry Branch Systolic blood 2022-09-21 16:07:00 128 mm[Hg] Univer sity of pressure [place] [facility] Diastolic blood 2022-09-21 16:07:00 81 mm[Hg] Unive rsity of pressure [place] [facility] Heart rate 2022-09-21 16:07:00 87 /min Universi ty [facility] [place] [facility] Body temperature 2022-09-21 16:07:00 36.39 Lauren [facility] [place] [facility] Respiratory rate 2022-09-21 16:07:00 18 /min Univ [facility] [place] [facility] Oxygen saturation in 2022-09-21 16:07:00 99 /min University of Arterial blood by [place] L2 balaji Pulse oximetry Branch Body weight 2022-09-21 08:12:00 76.975 kg Universi [facility] [place] [facility] BMI 2022-09-21 08:12:00 23.67 kg/m2 [facility] [place] [facility] Body height 2022-09-19 20:21:00 180.3 cm [facility] [place] [facility] Respiratory rate 2022-09-20 14:44:00 18 /min Univ ers[facility] [place] [facility] Oxygen saturation in 2022-09-20 14:44:00 100 /min University of Arterial blood by [place] L2 balaji Pulse oximetry Branch Systolic blood 2022-09-20 14:42:00 118 mm[Hg] Univer sity of pressure [place] [facility] Diastolic blood 2022-09-20 14:42:00 78 mm[Hg] Unive rsity of pressure [place] [facility] Heart rate 2022-09-20 14:22:00 72 /min Universi ty of [facility] Body temperature 2022-09-20 14:16:00 36.28 Lauren Univ ersity of [facility] Body weight 2022-09-20 08:36:00 75.479 kg Universi ty of [facility] Branch BMI 2022-09-20 08:36:00 23.67 kg/m2 Universi ty of [facility] Body height 2022-09-19 20:21:00 180.3 cm Universi ty of [facility] Systolic blood 2022-09-19 20:11:00 137 mm[Hg] Univer sity of pressure [facility] Branch Diastolic blood 2022-09-19 20:11:00 74 mm[Hg] Unive rsity of [facility] Heart rate 2022-09-19 20:11:00 105 /min Universi ty of [facility] Body temperature 2022-09-19 20:11:00 36.17 Lauren Univ ersity of [facility] Respiratory rate 2022-09-19 20:11:00 16 /min Univ ersity of [facility] Body height 2022-09-19 20:11:00 180.3 cm Universi ty of [place] [facility] [place] Body weight 2022-09-19 20:11:00 76.386 kg Universi ty of [facility] BMI 2022-09-19 20:11:00 23.49 kg/m2 Universi ty of [facility] Oxygen saturation in 2022-09-19 20:11:00 98 /min University Arterial blood by [facility] Pulse oximetry Branch Systolic blood 2022-09-16 18:44:00 106 mm[Hg] Univer sity of pressure [facility] Diastolic blood 2022-09-16 18:44:00 64 mm[Hg] Unive rsity of pressure [facility] Heart rate 2022-09-16 18:44:00 77 /min Universi ty of [facility] Branch Body temperature 2022-09-16 18:44:00 37 Lauren Univ ersity of [facility] Body height 2022-09-16 18:44:00 180.3 cm Universi ty of [facility] Branch Body weight 2022-09-16 18:44:00 75.932 kg Universi ty of [facility] Branch BMI 2022-09-16 18:44:00 23.35 kg/m2 [facility]i [facility] [place] [facility] Oxygen saturation in 2022-09-16 18:44:00 100 /min University of Arterial blood by [place] Medi balaji Pulse oximetry Branch Systolic blood 2022-07-09 20:44:00 131 mm[Hg] Univer sity of pressure [place] [facility] Diastolic blood 2022-07-09 20:44:00 81 mm[Hg] Unive rsity of pressure [place] [facility] Heart rate 2022-07-09 20:44:00 71 /min Universi [facility] [place] [facility] Body temperature 2022-07-09 20:44:00 36.78 Lauren [facility] [place] [facility] Respiratory rate 2022-07-09 20:44:00 20 /min Univ [facility] [place] [facility] Body height 2022-07-09 20:44:00 180.3 cm [facility] [place] [facility] Body weight 2022-07-09 20:44:00 77.157 kg [facility] [place] [facility] BMI 2022-07-09 20:44:00 23.72 kg/m2 [facility] [place] [facility] Oxygen saturation in 2022-07-09 20:44:00 100 /min University of Arterial blood by [place] Medi balaji Pulse oximetry Branch Systolic blood 2022-05-27 19:55:00 104 mm[Hg] Univer sity of pressure [place] [facility] Diastolic blood 2022-05-27 19:55:00 66 mm[Hg] Unive rsity of pressure [place] [facility] Heart rate 2022-05-27 19:55:00 78 /min Universi ty [facility] [place] [facility] Body temperature 2022-05-27 19:55:00 36.78 Lauren [facility] [place] [facility] Body height 2022-05-27 19:55:00 180.3 cm [facility] [place] [facility] Body weight 2022-05-27 19:55:00 77.565 kg [facility] [place] [facility] BMI 2022-05-27 19:55:00 23.85 kg/m2 [facility] [place] [facility] Oxygen saturation in 2022-05-27 19:55:00 99 /min University of Arterial blood by [place] Medi balaji Pulse oximetry Branch Systolic blood 2022-05-21 18:13:00 116 mm[Hg] Univer sity of pressure [place] [facility] Diastolic blood 2022-05-21 18:13:00 72 mm[Hg] Unive rsity of pressure [place] [facility] Heart rate 2022-05-21 18:13:00 73 /min Universi ty [facility] [place] [facility] Body height 2022-05-21 18:13:00 180.3 cm [facility]i ty [facility] [place] [facility] Body weight 2022-05-21 18:13:00 76.114 kg [facility] [place] [facility] BMI 2022-05-21 18:13:00 23.40 kg/m2 Universi ty [facility] [place] [facility] Oxygen saturation in 2022-05-21 18:13:00 98 /min University of Arterial blood by [facility] balaji Pulse oximetry Branch Systolic blood 2022-05-14 20:38:00 127 mm[Hg] Univer sity of pressure [place] [facility] Diastolic blood 2022-05-14 20:38:00 76 mm[Hg] Unive rsity of pressure [place] [facility] Heart rate 2022-05-14 20:38:00 74 /min [facility]i ty [facility] [place] [facility] Body temperature 2022-05-14 20:38:00 36.83 Lauren [facility] [place] [facility] Body height 2022-05-14 20:38:00 180.3 cm [facility] [place] [facility] Body weight 2022-05-14 20:38:00 76.204 kg [facility] [place] [facility] BMI 2022-05-14 20:38:00 23.43 kg/m2 [facility] [place] [facility] Oxygen saturation in 2022-05-14 20:38:00 100 /min University of Arterial blood by [facility] balaji Pulse oximetry Branch Systolic blood 2022-01-31 21:27:00 120 mm[Hg] Univer sity of pressure [place] [facility] Diastolic blood 2022-01-31 21:27:00 72 mm[Hg] Unive rsity of pressure [place] [facility] Heart rate 2022-01-31 21:27:00 80 /min [facility]i ty [facility] [place] [facility] Body height 2022-01-31 21:27:00 180.3 cm [facility] [place] [facility] Body weight 2022-01-31 21:27:00 76.34 kg [facility] [place] [facility] BMI 2022-01-31 21:27:00 23.47 kg/m2 [facility]i ty [facility] [place] [facility] Oxygen saturation in 2022-01-31 21:27:00 99 /min University Arterial blood by [facility] Pulse oximetry Branch Procedures Procedure Date / Time Performing Clinician Source Performed ASSIGNMENT OF BENEFITS 2022-10-10 22:16:56 Doctor Unassigned, No [facility] Medical Branch CONSENT/REFUSAL FOR 2022-10-10 20:57:37 [facility]igned, [facility] Name Medical Branch DISABILITY/FMLA 2022-10-02 05:01:00 Doctor Unassigned, No [facility] Name Medical Branch ASPIRATE OR ABSCESS 2022-09-20 13:59:00 Marlyn [facility] CULTURE(AEROBIC/ANAEROB Medical Branch IC) ASPIRATE OR ABSCESS 2022-09-20 13:59:00 Marlyn [facility] CULTURE(AEROBIC/ANAEROB Medical Branch IC) EXAM UNDER ANESTHESIA 2022-09-20 13:05:00 Marlyn [facility] RECTUM [facility] Branch INCISION AND DRAINAGE 2022-09-20 13:05:00 Marlyn [facility] RECTAL ABSCESS Medical Branch CT ABDOMEN PELVIS W 2022-09-19 21:35:21 Antonietta Mac [facility] CONTRAST Medical Branch CT ABDOMEN PELVIS W 2022-09-19 21:35:21 Antonietta Mac [facility] CONTRAST Medical Branch COMP. METABOLIC PANEL 2022-09-19 21:04:00 Antonietta Mac [facility] ([id number]) Medical Branch CBC WITH DIFF 2022-09-19 21:04:00 Antonietta Mac [place] [facility] URINALYSIS 2022-09-19 21:04:00 Bubba, K Marisa [place] [facility] COMP. METABOLIC PANEL 2022-09-19 21:04:00 Antonietta Mac [facility] ([id number]) Medical Branch CBC WITH DIFF 2022-09-19 21:04:[address] [facility] o [facility] URINALYSIS 2022-09-19 21:04:00 Bubba, K Marias [facility] CONSENT/REFUSAL FOR 2022-09-19 20:18:14 Doctor Unassigned, No [facility] Name [facility] CONSENT/REFUSAL FOR 2022-09-19 20:18:14 Doctor [facility]assigned, [facility] Name [facility] PATIENT FINANCIAL 2022-07-09 20:35:43 Doctor Unassigned, No [facility] POLICY Name [facility] ASSIGNMENT OF BENEFITS 2022-05-14 19:58:57 Doctor Unassigned, No [facility] Name Medical Branch VACCINATIONS - 2022-01-27 05:01:00 Doctor Unassigned, No [facility] CONSENTS, ELIGIBILITY, Name Medical B ranch HISTORY Encounters Start End Encounter Admission Attending Care Care Encounter Source Date/Time Date/Time Type Type Clinicians Facility Department ID 2022-10-10 2022-10-10 Emergency X [facility] E[facility] [id number] Univers 16:06:00 17:32:00 JUAN A cirilo [facility] 2022-10-10 2022-10-10 Emergency [facility] 1.2.840.114 [id number] Univers 16:06:00 17:32:00 Juan A MICHELLEZAIN 350.1.13.10 i ty [place] [id number] [facility] [address] [place] 2022-10-09 2022-10-09 Clinic [facility] 1.2.840.114 [id number] Univers 00:00:00 00:00:00 Assessment Geovanna MIGUEL ANGELZAIN 350.1.13.10 ity [facility] 4[place].2.[place] [id number] [place] N[place] [address] [place] [address] 2022-10-02 2022-10-02 Outpatient R GEOVANNA MONIQUE [facility] [id number] Univers 09:00:00 09:58:15 GEOVANNA MONIQUE [facility] 2022-10-02 2022-10-02 Office [facility] 1.2.840.114 [id number] Univers 09:00:00 09:58:15 Visit Geovanna OBRIEN 350.1.13.10 ity [facility] 4[place] [id number] [place] N[place] [address] [facility] 2022-10-022022-10-02 Orders Doctor DANIELA 1.2.840.114 [id number] Univers 00:00:00 00:00:00 Only Unassigned, ELAINE 350.1.13.10 ity of [place] [facility] 4.2.7.2.686 Kanu as [id number] [facility] 009 Branch 2022-09-30 2022-09-30 Telephone [facility] [id number] Univers 00:00:00 00:00:00 Geovanna OBRIEN 350.1.13.10 ity of [facility] 4.[place] [phone] [place] dical [facility] 188 Branch [facility] 2022-09-24 2022-09-24 Outpatient R YVROSE [facility] [id number] Univers 00:00:00 00:00:00 VALDO watkins [facility] 2022-09-23 2022-09-23 Outpatient Solis ROME [facility] [id number] Univers 00:00:00 00:00:00 VALDO watkins [facility] 2022-09-19 2022-09-21 Outpatient X NOÉ [facility] [id number] Univers 15:23:00 13:34:00 DELROY watkins [facility] 2022-09-19 2022-09-21 Emergency Antonietta Mac [facility] 1.2.840. 114 [id number] Univers 15:23:00 13:34:00 Delroy Umanzor 350.1.13.10 ity of [place] 4.2.7.2.686 [facility] [phone] [facility] 081 Branch 2022-09-20 2022-09-20 Surgery [facility] 1.2.840.114 [id number] Univers 08:00:00 09:44:00 Geovanna OBRIEN 350.1.13.10 ity of [place].7.2.[place] [id number] [facility] 020 Branch 2022-09-19 2022-09-19 Outpatient R HAWA [facility] [id number] Univers 15:00:00 15:05:36 PORTIA watkins o f [facility] 2022-09-19 2022-09-19 Nurse Nurse, Suleman [facility] 1.2.840.114 [id number] Univers 15:00:00 15:05:36 Visit Unknown, Attending HEALTH 350.1.13.10 ity of [place] 4.2.7.2.686 Kanu as LOKESH?BLEA [id number] [place] trina JEFFERS [address] [place] MEDICAL OFFICE [facility] 2022-09-19 2022-09-19 Outpatient R UNKNOWN, [facility] [id number] Univers 14:40:00 14:40:00 ATTENDING itcirilo [facility] 2022-09-16 2022-09-16 Outpatient R YVROSE, [facility] [id number] Univers 13:30:00 17:12:58 VALDO itcirilo [facility] 2022-09-16 2022-09-16 Office Yvrose [facility] 1.2.840.114 [id number] Univers 13:30:00 17:12:58 Visit Valdo [facility] 350.1.13.10 it y of [place] 4.2.7.2.686 Kanu as LOKESH?BLEA [id number] [facility] [address] OFFICE [facility] 2022-07-09 2022-07-09 Outpatient R LEISA, [facility] [id number] Univers 16:00:00 16:14:05 LISY ity [facility] 2022-07-09 2022-07-09 Office [facility] 1.2.840.114 [id number] Univers 16:00:00 16:14:05 Visit Lisy Merlin [facility] 350.1.13.10 i ty of [place] 4.2.7.2.686 Kanu as LOKESH?BLEA [id number] [facility] [address] [place] MEDICAL OFFICE [facility] 2022-07-09 2022-07-09 Orders Doctor SUAREZ 1.2.840.114 [id number] Univers 00:00:00 00:00:00 Only Unassigned, ELAINE 350.1.13.10 ity of [place] [facility] 4.2.7.2.686 Kanu as [id number] [address] 2022-06-18 2022-06-18 Outpatient R LARS [facility] [id number] Univers 14:00:00 14:00:00 JHONATAN watkins [facility] 2022-06-05 2022-06-05 Telephone [facility] [id number] Univers 00:00:00 00:00:00 Jhonatan HEALTH 350.1.13.10 it y of [place] 4.2.7.2.686 Kanu as LOKESH?BLEA [id number] [address] OFFICE [facility] 2022-05-28 2022-05-28 Telephone [facility] [id number] Univers 00:00:00 00:00:00 Jhonatan HEALTH 350.1.13.10 it y of [place] 4.2.7.2.686 Kanu as LOKESH?BLEA [id number] [address] 2022-05-27 2022-05-27 Outpatient R YVROSE [facility] [id number] Univers 14:21:50 23:59:00 VALDO watkins [facility] 2022-05-27 2022-05-27 Office [facility] 1.2.840.114 [id number] Univers 13:30:00 14:22:06 Visit Valdo HEALTH 350.1.13.10 it y of [place] 4.2.7.2.686 Kanu as LOKESH?BLEA [id number] [address] OFFICE [facility] 2022-05-27 2022-05-27 Telephone [facility] [id number] Univers 00:00:00 00:00:00 Valdo HEALTH 350.1.13.10 it y of [place] 4.2.7.2.686 Kanu as LOKESH?BLEA [id number] [address] OFFICE [facility] 2022-05-21 2022-05-21 Office [facility] 1.2.840.114 [id number] Univers 12:30:00 12:45:00 Visit Jhonatan HEALTH 350.1.13.10 it y of [place] 4.2.7.2.686 Kanu as LOKESH?BLEA [id number] [address] MEDICAL OFFICE [facility] 2022-05-21 2022-05-21 Outpatient R LARS [facility] [id number] Univers 12:30:00 12:30:00 JHONATAN watkins [facility] 2022-05-14 2022-05-14 Outpatient R LEISA [facility] [id number] Univers 14:30:00 15:01:01 LISY watkins [facility] 2022-05-14 2022-05-14 Office [facility] 1.2.840.114 [id number] Univers 14:30:00 15:01:01 Visit Lisy A HEALTH 350.1.13.10 i ty [facility] 4.2.7.2.686 Kanu as LOKESH?BLEA [id number] [address] OFFICE [facility] 2022-05-14 2022-05-14 Orders Doctor DANIELA 1.2.840.114 [id number] Univers 00:00:00 00:00:00 Only Unassigned, ELAINE 350.1.13.10 ity of [place] [facility] 4.2.7.2.686 Kanu as [id number] [address] 2022-01-31 2022-01-31 Outpatient R LIBERTYBRODERICK [facility] [id number] Univers 16:30:00 16:52:58 LILLIAM watkins [facility] 2022-01-31 2022-01-31 Office [facility] 1.2.840.114 [id number] Univers 16:30:00 16:52:58 Visit Lilliam HEALTH 350.1.13.10 it y [facility] 4.2.7.2.686 Kanu as LOKESH?BLEA [id number] [address] OFFICE [facility] 2022-01-27 2022-01-27 Orders Doctor DANIELA 1.2.840.114 [id number] Univers 00:00:00 00:00:00 Only Unassigned, ELAINE 350.1.13.10 ity of [place] [facility] 4.2.7.2.686 Kanu as [id number] [address] 2021-12-09 2021-12-09 Telephone Lars [facility] [id number] Univers 00:00:00 00:00:00 [facility] 350.1.13.10 it y of [facility] 4.2.7.2.686 Kanu as LOKESH?BLEA [id number] [facility] [address] [place] MEDICAL OFFICE [facility] 2021-11-12 2021-11-12 Outpatient R RACHEL DUNHAM [facility] [id number] Univers 09:04: 23:59:00 ROLYCORONASommerMaribel ity [facility] 2021-11-12 2021-11-12 [facility] [id number] Univers : 23:59:00 Encounter Rachel OBRIEN 350.1.13.10 ity of [facility] [place].2.[place] [id number] [facility] [address] [place] [address] 2021-11-12 2021-11-12 Outpatient R RACHEL DUNHAM [facility] [id number] Univers 08:30:00 08:55:50 NEENA DUNHAMSommerMaribel ity [facility] 2021-11-12 2021-11-12 [facility] 1.2.840.114 [id number] Univers 08:30:00 08:55:50 Visit Neenalexus [place] 350.1.13.10 ity of [facility] [place].2.[place] [id number] [facility] [address] [facility] 2021-11-12 2021-11-12 Telephone [facility] 1.2.840.114 [id number] Univers 00:00:00 00:00:00 Rachel OBRIEN 350.1.13.10 ity [facility] [place] [id number] [facility] [address] [facility] 2021-08-14 2021-08-14 Orders Doctor DANIELA 1.2.840.114 [id number] Univers 00:00:00 00:00:00 Only Unassigned, ELAINE 350.1.13.10 ity of [place] [facility] 4.2.7.2.686 Kanu as [id number] [address] 2021-04-25 2021-04-25 Outpatient R LEISA [facility] [id number] Univers 16:30:00 16:51:58 LISY watkins [facility] 2021-04-25 2021-04-25 Office [facility] 1.2.840.114 [id number] Univers 16:30:00 16:51:58 Visit Lisy CARBAJAL 350.1.13.10 i ty of [place] 4.2.7.2.686 Kanu as LOKESH?BLEA [phone] [address] MEDICAL OFFICE [facility] 2020-12-25 2020-12-25 Office [facility] 1.2.840.114 [id number] Univers 09:02:45 09:17:45 Visit [facility] 350.1.13.10 it y of [place] 4.2.7.2.686 Kanu as Lokesh?Blea [phone] [address] Medical Office [facility] 2020-12-25 2020-12-25 Outpatient R LARS [facility] [id number] Univers 08:30:00 08:30:00 JHONATAN watkins [facility] 2020-12-25 2020-12-25 Orders Doctor SUAREZ 1.2.840.114 [id number] Univers 00:00:00 00:00:00 Only Unassigned, ELAINE 350.1.13.10 ity of [place] [facility] 4.2.7.2.686 Kanu as [phone] [address] 2020-12-25 2020-12-25 Orders Doctor SUAREZ 1.2.840.114 [id number] Univers 00:00:00 00:00:00 Only Unassigned, ELAINE 350.1.13.10 ity of [place] [facility] 4.2.7.2.686 Kanu as [phone] [address] 2020-06-25 2020-06-25 Orders Doctor DANIELA Shea.2.840.114 [id number] Univers 00:00:00 00:00:00 Only Unassigned, ELAINE 350.1.13.10 ity of [place] [facility] 4.2.7.2.686 Kanu as [phone] [address] 2020-06-19 2020-06-19 Letter Lars NDARTURO 1.2.840.114 [id number] Univers 00:00:00 00:00:00 (Out) [facility] 350.1.13.10 it y of [place] 4.2.7.2.686 Kanu as Professio [phone] [address] Office [facility] 2020-06-19 2020-06-19 Orders Doctor DANIELA 1.2.840.114 [id number] Univers 00:00:00 00:00:00 Only Unassigned, ELAINE 350.1.13.10 ity of [place] [facility] 4.2.7.2.686 Kanu as [phone] [address] 2020-06-18 2020-06-18 Bran Kidd [facility] 1.2.509.210 [id number] Univers 00:00:00 00:00:00 [facility] 350.1.13.10 it y of [place] 4.2.7.2.686 Kanu as Professio [phone] [address] One 2020-06-15 2020-06-15 Bran Kidd NDARTURO 1.2.616.738 [id number] Univers 00:00:00 00:00:00 [facility] 350.1.13.10 it y of [place] 4.2.7.2.686 Kanu as Professio [phone] [address] One 2020-06-01 2020-06-01 Bran Kidd [facility] 1.2.334.519 [id number] Univers 00:00:00 00:00:00 [facility] 350.1.13.10 it y of [place] 4.2.7.2.686 Kanu as Professio [phone] [address] One 2020-05-31 2020-05-31 Bran Kidd [facility] 1.2.716.532 [id number] Univers 00:00:00 00:00:00 [facility] 350.1.13.10 it y of [place] 4.2.7.2.686 Kanu as Professio [phone] [place] dical nal [address] [place] Office [facility] 2020-05-30 2020-05-30 Outpatient R LARS [facility] [id number] Univers 14:30:00 14:30:00 JHONATAN haynescirilo [facility] 2020-05-30 2020-05-30 Office [facility] 1.2.840.114 [id number] Univers 14:11:30 14:26:30 Visit [facility] 350.1.13.10 it y of [place] 4.2.7.2.686 Kanu as Professio [phone] [place] dicpr [place]al [address] [place] [address] One 2020-05-30 2020-05-30 Letter [facility] 1.2.840.114 [id number] Univers 00:00:00 00:00:00 (Out) [facility] 350.1.13.10 it y of [place] 4.2.7.2.686 Kanu as Professio [phone] [place] d[place] [address] [place] [address] Office [facility] 2020-05-30 2020-05-30 Letter [facility] 1.2.840.114 [id number] Univers 00:00:00 00:00:00 (Out) [facility] 350.1.13.10 it y of [place] 4.2.7.2.686 Kanu as Professio [phone] [place] d[place] [address] [place] [address] Office [facility] 2020-05-29 2020-05-29 Telephone [facility] 1.2.019.306 [id number] Univers 00:00:00 00:00:00 [facility] 350.1.13.10 it y of [place] 4.2.7.2.686 Kanu as Professio [phone] [place] dical [place]al [address] [place] [address] Office [facility] 2020-05-23 2020-05-23 Outpatient R LEISA [facility] [id number] Univers 09:00:00 09:00:00 LISY watkins [facility] 2020-05-09 2020-05-09 Urgent Portia Krueger [facility] 1.2.840 .114 [id number] Univers 07:43:37 08:03:37 Care Lisy [facility] 350.1.13.10 ity of [place] 4.2.7.2.686 Kanu as Professio [phone] [address] One 2020-05-09 2020-05-09 Outpatient R LEISA [facility] [id number] Univers 08:00:00 08:00:00 LISY haynescirilo [facility] 2019-10-03 2019-10-03 Outpatient R THERON [facility] [id number] Univers 14:40:00 14:40:00 GENNY cirilo [facility] 2019-10-03 2019-10-03 Urgent Provider, [facility] 1.2.840.114 [id number] Univers 13:57:25 14:38:21 Kadie Whittaker [facility] 350.1.13.10 ity of [place] 4.2.7.2.686 Kanu as Professio [phone] [address] 2019-10-03 2019-10-03 Telephone Evangelist [facility] 1.2.840.114 [id number] Univers 00:00:00 00:00:00 [facility] 350.1.13.10 it y of [place] 4.2.7.2.686 Kanu as Professio [phone] [address] One Results Test Description Test Time Test Comments Results Result Comments Source COMP. METABOLIC PANEL ([id number]) 2022-09-19 21:33:29 Test Item Value Reference Range Interpretation Comme nts NA (test code = 0670077256) 140 mmol/L 135-145 K (test code = 3703876832) 3.8 mmol/L 3.5-5.0 CL (test code = 6067168259) 101 mmol/L 98-108 CO2 TOTAL (test code = 4594184598) 29 mmol/L 23-31 AGAP (test code = 8361752759) 10 2-16 BUN (test code = 0641846999) 18 mg/dL 7-23 GLUCOSE (test code = 6503909895) 126 mg/dL 70-110 H CREATININE (test code = 0.92 mg/dL 0.60-1.25 3306691830) TOTAL BILI (test code = 0.5 mg/dL 0.1-1.9 9697320609) CALCIUM (test code = 5137582217) 9.3 mg/dL 8.6-10.6 T PROTEIN (test code = 8482641618) 7.9 g/dL 6.3-8.2 ALBUMIN (test code = 2907674269) 4.6 g/dL 3.5-5.0 ALK PHOS (test code = 1830604127) 78 U/L 34-122 ALTv (test code = 1742-6) 18 U/L 5-50 AST(SGOT) (test code = 4917225575) 25 U/L 13-40 eGFR (test code = 2312407190) 90.7 mL/min/1.73m2 XENIA (test code = XENIA) Association of Glomerular Filtration Rate (GFR) and Staging of Kidney Disease* + +-------- + ------+| GFR (mL/min/1.73 m2) ?| With Kidney Damage ?| ?Without Kidney Damage+ +-- + +| ?>90 ?| ?Stage one ?| ? Normal ?+ +------- + -------+| ?60-89 ?| ?Stage two ?| ? Decreased GFR ? + +-------- + ------+| ?30-59 ?| ?Stage three ?| ? Stage three ? + +-------- + ------+| ?15-29 ?| ?Stage four ? | ? Stage four ?+ +------- + -------+| ?<15 (or dialysis) ? ?| ?Stage five ? | ? Stage five ?+ +------- + -------+ *Each stage assumes the associated GFR level has been in effect for at least three months. ?Stages 1 to 5, with or without kidney disease, indicate chronic kidney disease. Notes: Determination of stages one and two (with eGFR >59mL/min/1.73 m2) requires estimation of kidney damage for at least three months as defined by structural or functional abnormalities of the kidney, manifested by either:Pathological abnormalities or Markers of kidney damage (including abnormalities in the composition of the blood or urine or abnormalities in imaging tests). Lab Interpretation (test code = Abnormal 54631-8) [facility]. METABOLIC PANEL ([id number])2022-09-19 21:33:29 Test Item Value Reference Range Interpretation Comments NA (test code = 140 mmol/L 135-145 9885554864) K (test code = 3.8 mmol/L 3.5-5.0 6589060596) CL (test code = 101 mmol/L 98-108 4905241087) CO2 TOTAL (test code = 29 mmol/L 23-31 8205187068) AGAP (test code = 10 2-16 3580611245) BUN (test code = 18 mg/dL 7-23 4534412866) GLUCOSE (test code = 126 mg/dL 70-110 H 2286869637) CREATININE (test code = 0.92 mg/dL 0.60-1.25 3215452535) TOTAL BILI (test code = 0.5 mg/dL 0.1-1.4 7267375480) CALCIUM (test code = 9.3 mg/dL 8.6-10.6 2863000053) T PROTEIN (test code = 7.9 g/dL 6.3-8.2 8530353344) ALBUMIN (test code = 4.6 g/dL 3.5-5.0 5566255721) ALK PHOS (test code = 78 U/L 34-122 8835074814) ALTv (test code = 18 U/L 5-50 1742-6) AST(SGOT) (test code = 25 U/L 13-40 8804801835) eGFR (test code = 90.7 mL/min/1.73m2 0776665091) XENIA (test code = XENIA) Association of Glomerular Filtration Rate (GFR) and Staging of Kidney Disease* + --+ --+ ------+| GFR (mL/min/1.73 m2) ?| With Kidney Damage ?| ?Without Kidney Damage+ --------+ --------+ +| ?>90 ?| ?Stage one ?| ? Normal ?+ ---+ ---+ -------+| ?60-89 ?| ?Stage two ?| ? Decreased GFR ? + --+ --+ ------+| ?30-59 ?| ?Stage three ?| ? Stage three ? + --+ --+ ------+| ?15-29 ?| ?Stage four ? | ? Stage four ?+ ---+ ---+ -------+| ?<15 (or dialysis) ? ?| ?Stage five ? | ? Stage five ?+ ---+ ---+ -------+ *Each stage assumes the associated GFR level has been in effect for at least three months. ?Stages 1 to 5, with or without kidney disease, indicate chronic kidney disease. Notes: Determination of stages one and two (with eGFR >59mL/min/1.73 m2) requires estimation of kidney damage for at least three months as defined by structural or functional abnormalities of the kidney, manifested by either:Pathological abnormalities or Markers of kidney damage (including abnormalities in the composition of the blood or urine or abnormalities in imaging tests). Lab Interpretation Abnormal (test code = 27347-1) [facility] WITH [id number] 21:22:25 Test Item Value Reference Range Interpretation Comments WBC (test code = 9.72 See_Comment [Automated 8087-2) message] The sy stem which generated this result transmitted reference range : 4.20 - 10.70 10*3/?L. The reference range was not used to interpret this result as normal/abnormal . RBC (test code = 4.49 See_Comment [Automated 041-8) message] The sy stem which generated this result transmitted reference range : 4.26 - 5.52 10*6/?L. The reference range was not used to interpret this result as normal/abnormal . HGB (test code = 12.7 g/dL 12.2-16.4 718-7) HCT (test code = 37.2 % 38.4-49.3 L 4544-3) MCV (test code = 82.9 fL 81.7-95.6 787-2) MCH (test code = 28.3 pg 26.1-32.7 785-6) MCHC (test code = 34.1 g/dL 31.2-35.0 786-4) RDW-SD (test code = 37.6 fL 38.5-51.6 L 28159-5) RDW-CV (test code = 12.5 % 12.1-15.4 788-0) PLT (test code = 159 See_Comment [Automated 777-3) message] The sy stem which generated this result transmitted reference range : 150 - 328 10*3/ ?L. The reference r kimberly was not used to interpret this result as normal/abnormal . MPV (test code = 10.7 fL 9.8-13.0 41510-9) NRBC/100 WBC (test 0.0 See_Comment [Automat ed code = 3101713789) message] The system which generated this result transmitted reference range : 0.0 - 10.0 /100 WBCs. The refer ence range was not u sed to interpret th is result as normal/abnormal . NRBC x10^3 (test code See_Comment [Auto mated = 6799880720) message] The s ystem which generated this result transmitted reference range : 10*3/?L. The reference range was not used to interpret this result as normal/abnormal . GRAN MAT (NEUT) % 79.5 % (test code = 770-8) IMM GRAN % (test code 0.40 % = 9630093456) LYMPH % (test code = 12.2 % 736-9) MONO % (test code = 7.2 % 5905-5) EOS % (test code = 0.2 % 713-8) BASO % (test code = 0.5 % 706-2) GRAN MAT x10^3(ANC) 7.72 10*3/uL 1.99-6.95 H (test code = 2306422073) IMM GRAN x10^3 (test 0.04 10*3/uL 0.00-0.06 code = 3856905990) LYMPH x10^3 (test code 1.19 10*3/uL 1.09-3.23 = 731-0) MONO x10^3 (test code 0.70 10*3/uL 0.36-1.02 = 742-7) EOS x10^3 (test code = 0.06-0.53 L 711-2) BASO x10^3 (test code 0.05 10*3/uL 0.01-0.09 = 704-7) Lab Interpretation Abnormal (test code = 72241-5) [facility] WITH [id number] 21:22:25 Test Item Value Reference Range Interpretation Comments WBC (test code = 9.72 See_Comment [Automated 6690-2) message] The sy stem which generated this result transmitted reference range : 4.20 - 10.70 10*3/?L. The reference range was not used to interpret this result as normal/abnormal . RBC (test code = 4.49 See_Comment [Automated 789-8) message] The sy stem which generated this result transmitted reference range : 4.26 - 5.52 10*6/?L. The reference range was not used to interpret this result as normal/abnormal . HGB (test code = 12.7 g/dL 12.2-16.4 718-7) HCT (test code = 37.2 % 38.4-49.3 L 4544-3) MCV (test code = 82.9 fL 81.7-95.6 787-2) MCH (test code = 28.3 pg 26.1-32.7 785-6) MCHC (test code = 34.1 g/dL 31.2-35.0 786-4) RDW-SD (test code = 37.6 fL 38.5-51.6 L 74979-3) RDW-CV (test code = 12.5 % 12.1-15.4 788-0) PLT (test code = 159 See_Comment [Automated 777-3) message] The sy stem which generated this result transmitted reference range : 150 - 328 10*3/ ?L. The reference r kimberly was not used to interpret this result as normal/abnormal . MPV (test code = 10.7 fL 9.8-13.0 18420-7) NRBC/100 WBC (test 0.0 See_Comment [Automat ed code = 6551272467) message] The system which generated this result transmitted reference range : 0.0 - 10.0 /100 WBCs. The refer ence range was not u sed to interpret th is result as normal/abnormal . NRBC x10^3 (test code See_Comment [Auto mated = 6573308851) message] The s ystem which generated this result transmitted reference range : 10*3/?L. The reference range was not used to interpret this result as normal/abnormal . GRAN MAT (NEUT) % 79.5 % (test code = 770-8) IMM GRAN % (test code 0.40 % = 1388050201) LYMPH % (test code = 12.2 % 736-9) MONO % (test code = 7.2 % 5905-5) EOS % (test code = 0.2 % 713-8) BASO % (test code = 0.5 % 706-2) GRAN MAT x10^3(ANC) 7.72 10*3/uL 1.99-6.95 H (test code = 7072176289) IMM GRAN x10^3 (test 0.04 10*3/uL 0.00-0.06 code = 3764487118) LYMPH x10^3 (test code 1.19 10*3/uL 1.09-3.23 = 731-0) MONO x10^3 (test code 0.70 10*3/uL 0.36-1.02 = 742-7) EOS x10^3 (test code = 0.06-0.53 L 711-2) BASO x10^3 (test code 0.05 10*3/uL 0.01-0.09 = 704-7) Lab Interpretation Abnormal (test code = 90174-5) [facility]"
[2023-01-16] MEDS ORDERED: LIDOCAINE 1% 20 ML MDV ONE (16:50)
--- NOTE | 2023-01-16 16:58 | ER ---
Nurse's Notes [facility] Name: John Barron Age: 42 yrs Sex: Male : 1980 Arrival Date: 01/16/2023 Time: 16:13 Bed 19 Private MD: Diagnosis: Cutaneous abscess of buttock;Cellulitis of buttock Presentation: 01/16 16:20 Chief complaint: Patient states: abscess to left buttocks x6 days. Pt states that he cm10 has a history of abscesses. Pt had surgery 1 year ago to have abscess to scrotum drained. 16:20 Method Of Arrival: Ambulatory cm10 16:23 Coronavirus screen: Vaccine status: Patient reports receiving the 2nd dose of the covid cm10 vaccine. Ebola Screen: Patient denies travel to an Ebola-affected area in the 21 days before illness onset. No symptoms or risks identified at this time. Initial Sepsis Screen: Does the patient meet any 2 criteria? No. Patient's initial sepsis screen is negative. Does the patient have a suspected source of infection? No. Patient's initial sepsis screen is negative. Risk Assessment: Do you want to hurt yourself or someone else? Patient reports no desire to harm self or others. Onset of symptoms was January 10, 2023. 16:23 Acuity: ML 3 cm10 Triage Assessment: 16:24 General: Appears in no apparent distress. comfortable, Behavior is calm, cooperative. cm10 Pain: Complains of pain in buttocks. Neuro: No deficits noted. Level of Consciousness is awake, alert, obeys commands, Oriented to person, place, time, situation. Respiratory: No deficits noted. Airway is patent Respiratory effort is even, unlabored, Respiratory pattern is regular, symmetrical. Historical: - Allergies: 16:21 Bactrim; cm10 - Home Meds: 16:21 Benztropine Mesylate Oral [Active]; trazodone Oral [Active]; cm10 - PMHx: 16:21 abscess; cm10 - Immunization history:: Adult Immunizations up to date. - Social history:: Smoking status: Patient denies any tobacco usage or history of. Screenin:00 [facility] ED Fall Risk Assessment (Adult) History of falling in the last 3 months, ph including since admission No falls in past 3 months (0 pts). Abuse screen: Denies threats or abuse. Denies injuries from another. Nutritional screening: No deficits noted. Tuberculosis screening: No symptoms or risk factors identified. Assessment: 17:00 General: Appears in no apparent distress. Behavior is calm, cooperative. Pain: ph Complains of pain in left gluteus jc. Neuro: Level of Consciousness is awake, alert, obeys commands, Oriented to person, place, time, situation. Cardiovascular: Capillary refill < 3 seconds in bilateral fingers Patient's skin is warm and dry. Derm: Skin is pink, warm \T\ dry. Abscess located on left gluteus jc is quarter sized, is red, is raised. Vital Signs: 16:23 BP 110 / 71; Pulse 91; Resp 18; Temp 98.7(TE); Pulse Ox 100% on R/A; Weight 72.57 kg; cm10 Height 5 ft. 11 in. ; Pain 10/10; 16:23 Body Mass Index 22.32 (72.57 kg, 180.34 cm) cm10 16:23 Pain Scale: Adult cm10 ED Course: 16:17 Patient arrived in ED. mr 16:18 Stephanie Medina FNP-C is PHCP. snw 16:18 Jenaro Charles MD is Attending Physician. snw 16:24 Triage completed. cm10 16:25 Arm band placed on Patient placed in an exam room, on a stretcher. cm10 16:34 Cami Luther, ANTONY is Primary Nurse. ap3 17:00 Patient has correct armband on for positive identification. Bed in low position. Call light in reach. Side rails up X 1. 17:00 Assist provider with I \T\ D: of an abscess on left buttock Set up I\T\D tray. Performed by myriam BERGERON Wound packed. iodoform gauze, Dressing with 4X4s, tape Patient tolerated well. Patient did not have IV access during this emergency room visit. 18:10 Olga Trotter, ANTONY is Primary Nurse. ph Administered Medications: 17:00 Drug: Lidocaine Infiltration (1 %) 1 vials 20 ml Infiltration once; to bedside Volume: ph 20 ml; Route: Infiltration; 18:00 Drug: Doxycycline PO 100 mg PO once Route: PO; ph 18:00 Drug: Ketorolac IM 30 mg IM once Route: IM; Site: left vastus lateralis; ph Outcome: 16:57 Discharge ordered by MD. tierney 18:14 Patient left the ED. ph 18:14 Discharged to home ambulatory, ph 18:14 Condition: good 18:14 Discharge instructions given to patient, Instructed on discharge instructions, follow up and referral plans. medication usage, wound care, Demonstrated understanding of instructions, follow-up care, medications, wound care, Prescriptions given X 2, Signatures: Stephanie Medina, PHARMACY PICKING TECHNICIAN-C PHARMACY PICKING TECHNICIAN-Csnw Lisette Fofana, [facility] Reg mr Olga Trotter RN RN Cami Luther RN RN ap3 Jordana Preston RN RN cm10 Corrections: (The following items were deleted from the chart) 16:24 16:20 Chief complaint: Patient states: abscess to left buttocks. Pt states that he has cm10 a history of abscesses. cm10
--- NOTE | 2023-01-16 16:58 | EDPHYS ---
Physician Documentation [facility] Name: John Barron Age: 42 yrs Sex: Male : 1980 Arrival Date: 01/16/2023 Time: 16:13 Bed 19 Private MD: ED Physician Jenaro Charles HPI: 01/16 16:25 This 42 yrs old Male presents to ER via Ambulatory with complaints of Abscess. snw 16:25 The patient presents with an abscess of the left gluteus jc. Description: raised, snw swollen, tender. Onset: The symptoms/episode began/occurred suddenly, 6 day(s) ago, and became persistent. Possible cause(s): unknown. Associated signs and symptoms: The patient has no apparent associated signs or symptoms. Severity of symptoms: At their worst the symptoms were moderate. The patient has experienced similar episodes in the past. It is unknown whether or not the patient has recently seen a physician, Sees Dr. Sousa. Historical: - Allergies: 16:21 Bactrim; cm10 - Home Meds: 16:21 Benztropine Mesylate Oral [Active]; trazodone Oral [Active]; cm10 - PMHx: 16:21 abscess; cm10 - Immunization history:: Adult Immunizations up to date. - Social history:: Smoking status: Patient denies any tobacco usage or history of. ROS: 16:24 Constitutional: Negative for fever, chills, and weight loss, Eyes: Negative for injury, snw pain, redness, and discharge, ENT: Negative for injury, pain, and discharge, Neck: Negative for injury, pain, and swelling, Cardiovascular: Negative for chest pain, palpitations, and edema, Respiratory: Negative for shortness of breath, cough, wheezing, and pleuritic chest pain, Abdomen/GI: Negative for abdominal pain, nausea, vomiting, diarrhea, and constipation, Back: Negative for injury and pain, : Negative for injury, bleeding, discharge, and swelling, MS/Extremity: Negative for injury and deformity, Neuro: Negative for headache, weakness, numbness, tingling, and seizure, Psych: Negative for depression, anxiety, suicide ideation, homicidal ideation, and hallucinations, 16:24 Skin: Positive for abscess, of the left buttock, Exam: 16:58 Constitutional: This is a well developed, well nourished patient who is awake, alert, snw and in no acute distress. Head/Face: Normocephalic, atraumatic. Eyes: Pupils equal round and reactive to light, extra-ocular motions intact. Lids and lashes normal. Conjunctiva and sclera are non-icteric and not injected. Cornea within normal limits. Periorbital areas with no swelling, redness, or edema. ENT: Nares patent. No nasal discharge, no septal abnormalities noted. Tympanic membranes are normal and external auditory canals are clear. Oropharynx with no redness, swelling, or masses, exudates, or evidence of obstruction, uvula midline. Mucous membranes moist. Neck: Trachea midline, no thyromegaly or masses palpated, and no cervical lymphadenopathy. Supple, full range of motion without nuchal rigidity, or vertebral point tenderness. No Meningismus. Chest/axilla: Normal chest wall appearance and motion. Nontender with no deformity. No lesions are appreciated. Cardiovascular: Regular rate and rhythm with a normal S1 and S2. No gallops, murmurs, or rubs. Normal PMI, no JVD. No pulse deficits. Respiratory: Lungs have equal breath sounds bilaterally, clear to auscultation and percussion. No rales, rhonchi or wheezes noted. No increased work of breathing, no retractions or nasal flaring. Abdomen/GI: Soft, non-tender, with normal bowel sounds. No distension or tympany. No guarding or rebound. No evidence of tenderness throughout. Back: No spinal tenderness. No costovertebral tenderness. Full range of motion. MS/ Extremity: Pulses equal, no cyanosis. Neurovascular intact. Full, normal range of motion. Neuro: Awake and alert, GCS 15, oriented to person, place, time, and situation. Cranial nerves II-XII grossly intact. Motor strength 5/5 in all extremities. Sensory grossly intact. Cerebellar exam normal. Normal gait. 16:58 Skin: Appearance: normal except for affected area, abscess, that is moderate sized, of the left buttocks, with surrounding cellulitis, that is moderate, no perianal, scrotal, or pilonidal involvement, cellulitis, that is moderate, well demarcated, on the left buttocks, Vital Signs: 16:23 BP 110 / 71; Pulse 91; Resp 18; Temp 98.7(TE); Pulse Ox 100% on R/A; Weight 72.57 kg; cm10 Height 5 ft. 11 in. ; Pain 10/10; 16:23 Body Mass Index 22.32 (72.57 kg, 180.34 cm) cm10 16:23 Pain Scale: Adult cm10 Procedures: 16:26 I \T\ D: Incision and drainage was performed for an abscess of the left buttocks Prepped snw with tara. Anesthetized with 5 ml's 1% Lidocaine. Incised with #10 blade. Drained moderate amount purulent fluid. Loculations removed. Packed with iodoform gauze, Dressing: sterile 4x4 gauze, the patient tolerated the procedure well. MDM: 16:18 Patient medically screened. snw 16:26 Differential diagnosis: abscess, cellulitis. Data reviewed: vital signs, nurses notes. snw 16:55 I considered the following discharge prescriptions or medication management in the [facility] emergency department Medications were administered in the Emergency Department. See MAR. Counseling: I had a detailed discussion with the patient and/or guardian regarding the historical points, exam findings, and any diagnostic results supporting the discharge/admit diagnosis, the need for outpatient follow up, for definitive care, to return to the emergency department if symptoms worsen or persist or if there are any questions or concerns that arise at home. Response to treatment: the patient's symptoms have markedly improved after treatment. Special discussion: Based on the history and exam findings, there is no indication for further emergent testing or inpatient evaluation. I discussed with the patient/guardian the need to see the primary care provider for further evaluation of the symptoms. 01/16 16:33 Order name: Suture Tray at Bedside; Complete Time: 16:34 snw 01/16 17:03 Order name: Wound dressing; Complete Time: 18:13 snw Administered Medications: 17:00 Drug: Lidocaine Infiltration (1 %) 1 vials 20 ml Infiltration once; to bedside Volume: ph 20 ml; Route: Infiltration; 18:00 Drug: Doxycycline PO 100 mg PO once Route: PO; ph 18:00 Drug: Ketorolac IM 30 mg IM once Route: IM; Site: left vastus lateralis; ph Disposition: 01/17 08:15 Co-signature as Attending Physician, Jenaro Charles MD I reviewed the patient's care rn provided by the Advanced Practice Provider and agree with the diagnosis and treatment plan. Disposition Summary: 01/16/23 16:57 Discharge Ordered Condition: Stable snw Diagnosis - Cutaneous abscess of buttock snw - Cellulitis of buttock snw Followup: snw - With: Emergency Department - When: As needed - Reason: Worsening of condition Followup: snw - With: Private Physician - When: 1 - 2 days - Reason: Recheck today's complaints, Continuance of care, Re-evaluation by your physician Discharge Instructions: - Discharge Summary Sheet snw - Skin Abscess snw - Cellulitis, Adult snw - Incision and Drainage snw - Wound Packing snw Forms: - Medication Reconciliation Form snw - Thank You Letter snw - Antibiotic Education snw - Prescription Opioid Use snw - Patient Portal Instructions snw - Leadership Thank You Letter snw Prescriptions: - Mobic 7.5 mg Oral Tablet - take 1 tablet ORAL route once daily take with food; 20 tablet; Refills: 0, snw Product Selection Permitted - Doxycycline Hyclate 100 mg Oral Tablet - take 1 tablet ORAL route every 12 hours; 20 tablet; Refills: 0, Product snw Selection Permitted Signatures: Stephanie Medina, WELDING PANTOGRAPH OPERATOR-C WELDING PANTOGRAPH OPERATOR-Csnw Jenaro Charles MD MD rn Olga Trotter RN RN ph Jordana Preston, RN RN cm10 Corrections: (The following items were deleted from the chart) 01/16 16:56 16:26 I \T\ D: Incision and drainage was performed for an abscess of the left buttocks snwsnw
[2023-01-16] MEDS ORDERED: KETOROLAC 30 MG/ML INJ ONE (18:01)
[2023-01-16] MEDS ORDERED: DOXYCYCLINE 100 MG CAP PO ONE (18:02)
[2023-01-16 18:22] VITALS: BP 110/71; TEMP 98.7; O2SAT 100
== END 2023-01-16 18:14 | disposition home or self-care (01) ==
LOC: ER 16:13
PROC: 0H98XZZ Drainage of Buttock Skin, External Approach (ICD-10-PCS; principal; 2023-01-16)
DX: L03.317 Cellulitis of buttock (principal); Z88.1 Allergy status to other antibiotic agents
CPT/HCPCS: 96372; 99284; 10060; J2001